=== PATIENT | male | born 1945 | race Caucasian/White ===

== ENCOUNTER 2018-08-14 08:34 | Day surgery (SDC) | payer MEDICARE, SELFPAY ==
--- NOTE | 2018-08-14 06:12 | PCM.HP.STD ---
Problem List (1) Screening for intestinal cancer Status: Acute History of Present Illness Date of Admission: 08/14/18 The patient is a 73 year old M presents for screening colonoscopy. He has had some abdominal pain and constipation. He states that he is never had a previous complete exam. An attempt was made in 2001. He was uncomfortable. Multiple attempts were made for him to present at a office appointment. Failed to show for 3 different appointments. His interest now is progressive constipation. Past Medical History Past Medical History (Chronic Problems): Chronic Problems (Last Updated 06/07/18 @ 14:55 by Teresa Jurado) Hypertension (Chronic) Chronic sinusitis (Chronic) Chronic constipation (Chronic) Nocturia associated with benign prostatic hyperplasia (Chronic) Medical History: Medical History (Last Updated 06/07/18 @ 14:55 by Teresa Jurado) Constipation K59.00 Depression F32.9 Arthritis M19.90 Back problem M53.9 HTN (hypertension) I10 Hearing problem H91.90 Seasonal allergies J30.2 Skin cancer C44.90 Vision problems H54.7 Allergies Latex, Natural Rubber Allergy (Intermediate, Verified 08/10/18 11:20) Unknown Home Medications: Ambulatory Orders Medication Instructions Recorded aspirin 81 mg tablet,delayed 81 mg PO DAILY 01/29/18 release clotrimazole-betamethasone 1 1 applic TOPICAL BID PRN PRN 01/29/18 %-0.05 % topical cream darifenacin ER 7.5 mg 7.5 mg PO QDAY 01/29/18 tablet,extended release 24 hr docusate sodium 100 mg capsule 100 mg PO DAILY PRN PRN 01/29/18 duloxetine 60 mg capsule,delayed 60 mg PO QDAY 01/29/18 release ketoconazole 1 % shampoo 1 applic TOPICAL 2XW 01/29/18 meloxicam 15 mg tablet 15 mg PO QDAY 01/29/18 tamsulosin 0.4 mg capsule 0.8 mg PO QHS 01/29/18 triamcinolone acetonide 0.1 % 1 applic TOPICAL DAILY PRN PRN 01/29/18 topical cream verapamil ER 360 mg 24 hr 360 mg PO QHS 01/29/18 capsule,extended release trazodone 50 mg tablet 50 mg PO QHS PRN #90 tab 02/28/18 Atorvastatin Calcium [Lipitor] 10 mg PO QHS 08/10/18 Dutasteride 0.5 mg PO DAILY 08/10/18 Fluocinolone Acetonide [Synalar] 1 applic TOPICAL BID PRN PRN 08/10/18 Fluticasone 0.05% [Flonase Nasal 2 spray INTRANASAL DAILY PRN PRN 08/10/18 [place]] Irbesartan [Avapro] 300 mg PO QHS 08/10/18 Linacolotide [Linzess] 145 mcg PO QHS 08/10/18 Triamterene 37.5MG/Hctz 25MG 1 tab PO QAM 08/10/18 [Maxzide 37.5 mg-25 mg Tablet] Surgical History: Surgical History (Last Updated 06/07/18 @ 14:55 by Teresa Jurado) S/P colonoscopy Z98.890 S/P hernia repair Z98.890, Z87.19 Status post surgical removal of pilonidal cyst Z98.890 Pilar cyst L72.11 Smoking Status: Former smoker Review of Systems Constitutional: Denies: Anorexia HEENT: Denies: Difficulty Swallowing Cardiovascular: Denies: Chest Pain Respiratory: Denies: Cough Gastrointestinal: Reports: Constipation Genitourinary: Denies: Dysuria Neurological: Denies: Balance problems Endocrine: Denies: Change in Body Habitus VTE Information - Inpt Only VTE Present on Admission: No - Physical Exam General: Alert, Oriented x3, Cooperative, No apparent distress HEENT: Atraumatic Oral: Moist Mucosa Lungs: Clear to auscultation Cardiovascular: Regular rate, Regular Rhythm Abdomen: Bowel Sounds Present, Soft, - - Overweight Extremities: No edema Lymphatic: No Cervical, Supraclavicular, or Inguinal Adenopathy Neurological: Cranial nerves II-XII grossly intact Psych/Mental Status: Normal Affect Assessment/Plan All Active Problems (Last Updated 06/07/18 @ 14:55 by Teresa Jurado) Screening for intestinal cancer (Acute) The patient presents for screening colonoscopy with possible biopsy or polypectomy is indicated. Careful inspection for potential source of constipation will be pursued. Random colonic biopsies were pursued if indicated. The patient is aware of technique, benefits, risks and alternatives. Because of his previous discomfort we will proceed with monitored anesthesia care. Primary care physician's Dr. Aníbal Morales M.D., F.A.C.S.
[2018-08-14 08:54] VITALS: BP 140/85; PULSE 98; RESP 16; TEMP 36.4; O2SAT 96; BMI 37.6
--- NOTE | 2018-08-14 09:30 | COLBX_PTH ---
PATIENT: SAM CALDWELL LOC: EN U#:[id number] AGE/SX: 73/M ROOM: RE08/14/[address]: Dr. Patrick Morales MD : 1945 BED: DIS: 08/14/2018 SPEC #: [id number] RECD: 08/14/18 11:58 STATUS: YAMIL GENESIS #: [id number] JACKI: 08/14/18 09:[address]: Patrick Morales DEPT: SURGICAL PATHOLOGY RECD BY: Ney Gimenez ENTERED: 08/14/18 13:35 SP TYPE: COLON BX OT DR: Dr. Carlos Avendaño MD Tissues: COLON BIOPSY Procedures: Surgery Specimen Level IV HEADER OPERATION: Colonoscopy PRE-OP DIAGNOSIS: Constipation TISSUE SUBMITTED: Random colonic biopsies MICROSCOPIC DIAGNOSIS Colon, random biopsy: No significant pathologic change. No evidence of colitis. See comment. AM:kota 08/15/18 COMMENT Focal mucosal hemorrhage is seen. Clinical correlation is suggested. MICROSCOPIC DESCRIPTION Slides are reviewed. GROSS DESCRIPTION Received in fixative is one container labeled with the patient's name and designated random colonic biopsy. The specimen consists of multiple irregular fragments of light parra soft tissue that in aggregate measure 2 x 0.3 x 0.1 cm. The specimen is totally submitted in one cassette. / SJ:rg 08/14/18 TC:5 CPT: 90453
[2018-08-14 10:20] VITALS: BP 119/72; BP 140/85; PULSE 92; RESP 14; TEMP 36.8; O2SAT 95
--- NOTE | 2018-08-14 10:20 | OP.ENDO_ITS ---
Patient Name: Miguel Angel Guillen Procedure Date: 08/14/2018 9:48 AM Date of : 1945 Age: 73 Procedure: Colonoscopy Indications: Screening for colorectal malignant neoplasm Providers: Patrick Morales MD Referring MD: Patrick Morales MD Medicines: See the Anesthesia note for documentation of the administered medications Patient Profile: Last Colonoscopy: more than 10 years ago. Complications: No immediate complications. Procedure: Pre-Anesthesia Assessment: - Prior to the procedure, a History and Physical was performed, and patient medications and allergies were reviewed. The patient's tolerance of previous anesthesia was also reviewed. The risks and benefits of the procedure and the sedation options and risks were discussed with the patient. All questions were answered, and informed consent was obtained. Prior Anticoagulants: The patient has taken no previous anticoagulant or antiplatelet agents. ASA Grade Assessment: II - A patient with mild systemic disease. After reviewing the risks and benefits, the patient was deemed in satisfactory condition to undergo the procedure. After I obtained informed consent, the scope was passed under direct vision. Throughout the procedure, the patient's blood pressure, pulse, and oxygen saturations were monitored continuously. The Colonoscope was introduced through the anus and advanced to the cecum, identified by appendiceal orifice and ileocecal valve. The colonoscopy was performed with moderate difficulty due to a redundant colon. Successful completion of the procedure was aided by changing the patient to a supine position. The patient tolerated the procedure well. The quality of the bowel preparation was good. The ileocecal valve was photographed. Scope In: 9:56:08 AM Scope Withdrawal Time 0 hours 6 minutes 53 seconds Scope Out: 10:14:03 AM Total Procedure Duration Time 0 hours 17 minutes 55 seconds Findings: The perianal and digital rectal examinations were normal. Multiple diverticula were found in the sigmoid colon and descending colon. Biopsies for histology were taken with a cold forceps from the entire colon for evaluation of microscopic colitis. The exam was otherwise without abnormality. Impression: - Diverticulosis in the sigmoid colon and in the descending colon. Biopsied. - The examination was otherwise normal. Recommendation: - Discharge patient to home. - Resume previous diet. - Continue present medications. - Repeat colonoscopy in 10 years for screening purposes. - Telephone my office for pathology results in 1 week. Procedure Code(s): --- Professional --- 66467, Colonoscopy, flexible; with biopsy, single or multiple Diagnosis Code(s): --- Professional --- Z12.11, Encounter for screening for malignant neoplasm of colon K57.30, Diverticulosis of large intestine without perforation or abscess without bleeding CPT copyright 2017 [employer]. All rights reserved. The codes documented in this report are preliminary and upon pricing actuary review may be revised to meet current compliance requirements. Patrick Morales MD 08/14/2018 10:20:28 AM This report has been signed electronically. Number of Addenda: 0 Note Initiated On: 08/14/2018 9:48 AM
[2018-08-14 10:25] VITALS: BP 111/64; BP 140/85; PULSE 89; RESP 16; O2SAT 94
[2018-08-14 10:30] VITALS: BP 127/74; BP 140/85; PULSE 88; RESP 16; O2SAT 94
[2018-08-14 10:35] VITALS: BP 129/80; BP 140/85; PULSE 87; RESP 16; TEMP 37.1; O2SAT 94
[2018-08-14 11:00] VITALS: BP 140/85
== END 2018-08-14 11:07 | disposition home or self-care (01) ==
LOC: EN 08:35 → AC 08:36
PROVIDERS: Family Provider Family Medicine; PCP Family Medicine; Visit Provider Surgery
PROC: 0DJD8ZZ Inspection of Lower Intestinal Tract, Via Natural or Artificial Opening Endoscopic (ICD-10-PCS; CPT 45378; principal; 2018-08-14 09:25)
DX: Z12.11 Encounter for screening for malignant neoplasm of colon (principal); K57.30 Diverticulosis of large intestine without perforation or abscess without bleeding; K59.09 Other constipation; I10 Essential (primary) hypertension; E78.00 Pure hypercholesterolemia, unspecified; N40.1 Benign prostatic hyperplasia with lower urinary tract symptoms; R35.1 Nocturia; F32.9 Major depressive disorder, single episode, unspecified; F41.9 Anxiety disorder, unspecified; J30.2 Other seasonal allergic rhinitis; Z85.828 Personal history of other malignant neoplasm of skin; Z87.891 Personal history of nicotine dependence; Z79.82 Long term (current) use of aspirin; Z79.899 Other long term (current) drug therapy
CPT/HCPCS: 45380; 88305; J7120

== ENCOUNTER → 2019-07-29 15:40 | Outpatient (CLI) | payer BC, SELFPAY ==
[2019-07-29 17:34] LABS: Absolute Lymphocyte Count 2.82 X10^3/uL (0.83-4.51); Absolute Neutrophil Count 6.9 X10^3/uL (2.0-7.7); Basophil# 0.04 X10^3/uL; Basophil% 0.3 % (0-1); Eosinophil# 0.41 X10^3/uL; Eosinophils% 3.6 % (0-5); Hematocrit 45.2 % (40-54); Hemoglobin 14.7 g/dL (13.0-16.5); Lymphocyte # 2.82 X10^3/ul (4.0); Lymphocyte % 24.5 % (19-41); Mean Corp Hgb Conc 32.5 g/dL (32-36); Mean Corpuscular Hgb 29.2 pg (27.0-32.0); Mean Corpuscular Volume 89.7 fL (80-94); Mean Platelet Vol. 10.4 fl (6.2-12.0); Monocyte# 1.24 X10^3/uL; Monocyte% 10.8 % (0-10); NRBC Flagged by Analyzer 0 % (0-5); Neutrophil # 6.93 X10^3/uL (2.7-7.7); Neutrophil % 60.1 % (47-70); Platelet Count 327 K/mm3 (150-450); RBC Distribution Width CV 13.1 % (11.6-14.6); RBC Distribution Width SD 42.8 fl (35.1-43.9); Red Blood Count 5.04 M/mm3 (4.6-6.2); White Blood Count 11.5 K/mm3 (4.4-11.0)
[2019-07-29 18:00] LABS: AST(SGOT) 17 U/L (15-37); Alanine Aminotransfer ALT/SGPT 27 U/L (16-61); Albumin, Serum 3.8 g/dL (3.2-5.0); Alkaline Phosphatase 65 U/L (45-117); Anion Gap 9 (5-15); BUN 22 mg/dL (7-18); BUN/Creat Ratio 22.1 RATIO (10-20); Bilirubin, Direct 0.17 mg/dL (0.00-0.30); Chloride 104 mmol/L (98-107); EST Glomerular Filtration Rate 78 mL/min (>60); Est Glom Filt Rate - Afr Amer 94 mL/min (>60); Globulin 3.7 g/dL (2.2-4.2); Glucose 87 mg/dL (74-106); Potassium 3.8 mmol/L (3.5-5.1); Protein, Total 7.5 g/dL (6.4-8.2); Sodium Level 140 mmol/L (136-145)
== END ==
PROVIDERS: Family Provider Family Medicine; PCP Family Medicine; Referring Provider Dermatology Pediatric Dermatology; Visit Provider Dermatology Pediatric Dermatology
DX: L40.0 Psoriasis vulgaris (principal); D69.2 Other nonthrombocytopenic purpura; Z79.899 Other long term (current) drug therapy
CPT/HCPCS: 36415; 80048; 80076; 85025; 86480

== ENCOUNTER → 2019-08-05 14:17 | Outpatient (CLI) | payer BC, SELFPAY ==
[2019-08-08 06:07] LABS: QNTFERON TB Mitogen Value > 10.00 IU/mL (.); QNTFERON TB Nil Value 0.02 IU/mL (.); QNTFERON TB1+ Ag Value 0.03 IU/mL (.); QNTFERON TB2+ Ag Value 0.02 IU/mL (.)
[2019-08-08 12:20] LABS: QNTIFERON TB Positive Criteria Negative (Negative)
== END ==
PROVIDERS: Family Provider Family Medicine; PCP Family Medicine; Referring Provider Dermatology Pediatric Dermatology; Visit Provider Dermatology Pediatric Dermatology
DX: L40.0 Psoriasis vulgaris (principal); D69.2 Other nonthrombocytopenic purpura; Z79.899 Other long term (current) drug therapy
CPT/HCPCS: 86480

== ENCOUNTER → 2020-10-13 10:57 | Outpatient (CLI) | payer MEDICARE, SELFPAY ==
[2020-10-16 03:07] LABS: QNTFERON TB Mitogen Value > 10.00 IU/mL (.); QNTFERON TB Nil Value 0.05 IU/mL (.); QNTFERON TB1+ Ag Value 0.08 IU/mL (.); QNTFERON TB2+ Ag Value 0.05 IU/mL (.)
[2020-10-16 06:05] LABS: QNTIFERON TB Positive Criteria Negative (Negative)
== END ==
PROVIDERS: PCP Family Medicine; Referring Provider Dermatology Pediatric Dermatology; Visit Provider Dermatology Pediatric Dermatology
DX: L64.8 Other androgenic alopecia (principal); L40.0 Psoriasis vulgaris; L40.8 Other psoriasis; L30.4 Erythema intertrigo; Z79.899 Other long term (current) drug therapy
CPT/HCPCS: 36415; 86480

== ENCOUNTER → 2022-03-07 | Outpatient (CLI) | payer MEDICARE, SELFPAY ==
[2022-03-07 15:31] LABS: Hematocrit 44.8 % (40-54); Hemoglobin 14.2 g/dL (13.0-16.5); Mean Corp Hgb Conc 31.7 g/dL (32-36); Mean Corpuscular Hgb 29.5 pg (27.0-32.0); Mean Corpuscular Volume 93.1 fL (80-94); Mean Platelet Vol. 10.5 fl (6.2-12.0); Platelet Count 318 K/mm3 (150-450); RBC Distribution Width CV 13.1 % (11.6-14.6); RBC Distribution Width SD 44.8 fl (35.1-43.9); Red Blood Count 4.81 M/mm3 (4.6-6.2); White Blood Count 8.4 K/mm3 (4.4-11.0)
[2022-03-07 16:02] LABS: ALB/GLOB Ratio 1.2 RATIO (0.9-2.4); AST(SGOT) 16 U/L (15-37); Alanine Aminotransfer ALT/SGPT 38 U/L (16-61); Albumin, Serum 3.7 g/dL (3.2-5.0); Alkaline Phosphatase 46 U/L (45-117); Anion Gap 5 (5-15); BUN 32 mg/dL (7-18); BUN/Creat Ratio 33.1 RATIO (10-20); Calcium,Total 8.5 mg/dL (8.5-10.1); Chloride 104 mmol/L (98-107); Creatinine, Serum 0.97 mg/dL (0.70-1.30); EST Glomerular Filtration Rate 80 mL/min (>60); Est Glom Filt Rate - Afr Amer 96 mL/min (>60); Globulin 3.2 g/dL (2.2-4.2); Glucose 84 mg/dL (74-106); Potassium 4.1 mmol/L (3.5-5.1); Protein, Total 6.9 g/dL (6.4-8.2); Sodium Level 140 mmol/L (136-145)
[2022-03-09 15:08] LABS: QNTFERON TB Mitogen Value > 10.00 IU/mL (.); QNTFERON TB Nil Value 0.03 IU/mL (.); QNTFERON TB1+ Ag Value 0.01 IU/mL (.); QNTFERON TB2+ Ag Value 0.01 IU/mL (.)
[2022-03-09 16:42] LABS: QNTIFERON TB Positive Criteria Negative (Negative)
== END | disposition home or self-care (01) ==
LOC: MTLAB 11:33
PROVIDERS: PCP Family Medicine; Referring Provider Dermatology Pediatric Dermatology; Visit Provider Dermatology Pediatric Dermatology
DX: L40.0 Psoriasis vulgaris (principal); D69.2 Other nonthrombocytopenic purpura; Z79.899 Other long term (current) drug therapy
CPT/HCPCS: 36415; 80053; 85027; 86480

== ENCOUNTER → 2024-04-04 | Outpatient (CLI) | payer MEDICARE, SELFPAY | END | disposition home or self-care (01) | LOC: MTLAB 15:34 | PROVIDERS: PCP Student in an Organized Health Care Education/Training Program; Referring Provider Physician Assistant; Visit Provider Physician Assistant | DX: L40.0 Psoriasis vulgaris (principal); L64.8 Other androgenic alopecia; D48.5 Neoplasm of uncertain behavior of skin; Z79.899 Other long term (current) drug therapy | CPT/HCPCS: 36415; 86480 ==

== ENCOUNTER → 2024-04-30 | Outpatient (CLI) | payer MEDICARE, SELFPAY ==
[2024-05-02 20:07] LABS: QNTFERON TB Mitogen Value > 10.00 IU/mL (.); QNTFERON TB Nil Value 0.01 IU/mL (.); QNTFERON TB1+ Ag Value 0.02 IU/mL (.); QNTFERON TB2+ Ag Value 0.02 IU/mL (.); QNTIFERON TB Positive Criteria Negative (Negative)
== END | disposition home or self-care (01) ==
LOC: MTLAB 13:06
PROVIDERS: PCP Student in an Organized Health Care Education/Training Program; Referring Provider Physician Assistant; Visit Provider Physician Assistant
DX: L40.0 Psoriasis vulgaris (principal); L64.8 Other androgenic alopecia; Z79.899 Other long term (current) drug therapy; D48.5 Neoplasm of uncertain behavior of skin
CPT/HCPCS: 86480

== ENCOUNTER → 2024-08-22 | Outpatient (CLI) | payer MEDICARE, SELFPAY ==
--- NOTE | 2024-08-22 | IMM_PTH ---
PATIENT: SAM CALDWELL LOC: [facility] U#:[id number] AGE/SX: 79/M ROOM: RE08/22/[address]: Dr. Patrick Phan MD : 1945 BED: DIS: 08/22/2024 SPEC #: [id number] RECD: 08/26/24 11:14 STATUS: YAMIL REQ #: [id number] JACKI: 08/22/24 00:[address]: Patrick Phan DEPT: IMMUNOHISTOCHEMISTRY RECD BY: Darius Calabrese ENTERED: 08/26/24 11:14 SP TYPE: IMMUNO OTHR DR: Dr. Dacia Parada MD Tissues: Skin of back, NOS Procedures: MART1 (add) S100 (initial) PHYSICIAN & INSTITUTION [place] [address] SPECIMEN INFORMATION: Tissue Source: Mid back lesion Clinical Info: Melanoma Specimen Number: [id number] CPT code: 65641,17411 METHODOLOGY: Deparaffinized sections of prefer/formalin-fixed tissue or PAP/DQ stained slides are incubated with monoclonal/polyclonal antibodies/oligonucleotide probes. Localization is made via biotin free immunoperoxidase method. Appropriate controls are performed and reacted as expected. Results on target cell population are indicated in the following table: RESULTS: ANTIBODY / CLONE RESULT S-100 (4C4.9) negative MART-1 (A-103) negative These tests were developed and their performance characteristics determined by [facility]. They may not have been cleared or approved by the [place]. Food and Drug Administration. The FDA has determined that such clearance or approval is not necessary. The above immunohistochemical/dualISH markers are ordered and reviewed by the Pathologist. INTERPRETATION: Skin lesion of mid back, punch biopsy: Negative for residual melanocytic lesion. 08/27/2024
--- NOTE | 2024-08-22 14:25 | LES_PTH ---
PATIENT: SAM CALDWELL LOC: [facility] U#:[id number] AGE/SX: 79/M ROOM: RE08/22/[address]: Dr. Patrick Phan MD : 1945 BED: DIS: 08/22/2024 SPEC #: [id number] RECD: 08/22/24 16:13 STATUS: YAMIL REJw #: [id number] JACKI: 08/22/24 14:[address]: Patrick Phan DEPT: SURGICAL PATHOLOGY RECD BY: Sharon Borjas ENTERED: 08/23/24 10:04 SP TYPE: Lesion OTHR DR: Dr. Dacia Parada MD Tissues: Skin of back, NOS Procedures: Special Stain Group I Surgery Specimen Level IV GMS Stain (control) HEADER OPERATION: Punch biopsy PRE-OP DIAGNOSIS: Melanoma TISSUE SUBMITTED: Mid back lesion MICROSCOPIC DIAGNOSIS Mid back lesion, punch biopsy: Extensive ulceration, acute inflammation and granulation tissue reaction. Negative for residual melanocytic lesion. See comment. 08/26/2024 COMMENT Immunohistochemistry ([id number]) supports the above diagnosis. Special stain for fungi is negative for organisms; matched control is appropriate. As per EMR, the patient has h/o superficial spreading melanoma. Clinical correlation and appropriate follow up are necessary. Case has been reviewed in consultation with Dr. Thomas who concurs with the above diagnosis. IDC:AM MICROSCOPIC DESCRIPTION Slides are reviewed. GROSS DESCRIPTION Received is one container labeled with the patient's name and not further designated. The specimen consists of a punch biopsy of parra-brown skin measuring 0.5cm in diameter and 0.6cm in length. Specimen is inked, bisected and submitted entirely in one cassette. 08/23/2024 TC:2 CPT:86594,63888
== END | disposition home or self-care (01) ==
LOC: LABSPEC 16:37
PROVIDERS: PCP Student in an Organized Health Care Education/Training Program; Referring Provider Surgery Plastic and Reconstructive Surgery; Visit Provider Surgery Plastic and Reconstructive Surgery
DX: C43.59 Malignant melanoma of other part of trunk (principal)
CPT/HCPCS: 88305; 88312; 88341; 88342

== ENCOUNTER 2024-09-04 05:47 | Day surgery (SDC) | payer MEDICARE, SELFPAY ==
[2024-09-04] VITALS (9 sets, daily range): BP systolic 104–167; BP diastolic 82–92; PULSE 70–79; RESP 18; TEMP 35.8–36.4; O2SAT 88–100; BMI 31.8
--- OUTSIDE RECORDS SUMMARY | 2024-09-04 05:50 | XMS RPT_ITS | CCD ---
Author Organization [facility] Care Team Providers Care Ground Operations Supervisor Name Role Phone Abi Hobbs DO Primary Care Provider ABI HOBBS DO Consulting Unavailable JAHAIRA ROSE DR Admitting Unavailable JAHAIRA ROSE DR Primary Care Unavailable JAHAIRA ROSE DR Attending Unavailable PROVIDER, UNKNOWN Consulting Unavailable PROVIDER, UNKNOWN Consulting Unavailable SESAR BREWER MD Admitting Unavailable ABI HOBBS DO Consulting Unavailable SESAR BREWER MD Primary Care Unavailable SESAR BREWER MD Attending Unavailable PROVIDER, UNKNOWN Consulting Unavailable PROVIDER, UNKNOWN Consulting Unavailable ABI HOBBS DO Consulting Unavailable ABI HOBBS DO Attending Unavailable ABI HOBBS DO Admitting Unavailable ABI HOBBS DO Primary Care Unavailable PROVIDER, UNKNOWN Consulting Unavailable PROVIDER, UNKNOWN Consulting Unavailable ABI HOBBS DO Consulting Unavailable SESAR BREWER MD Admitting Unavailable SESAR BREWER MD Primary Care Unavailable SESAR BREWER MD Attending Unavailable PROVIDER, UNKNOWN Consulting Unavailable PROVIDER, UNKNOWN Consulting Unavailable Allergies Allergy Classification Reported Allergen(s) Allergy Type Date of Onset Reaction(s) Facility (2 sources) Latex; Translations: [LATEX] Propensity to adverse reactions [address] [facility] Work Phone: (1 source) Spironolactone Drug Allergy [address] [facility] Medications Completed/Discontinued Medications Medication Drug Class(es) Dates Sig (Normalized) Sig (Original) aspirin 81 mg delayed release oral tablet (1 source) Platelet Aggregation Inhibitor, Nonsteroidal Anti-inflammatory Drug Start: 2 take 1 tablet by mouth once daily aspirin, enteric coated (ECOTRIN LOW STRENGTH) 81 mg ORAL EC tablet Indications: Essential hypertension, benign Take 1 tablet by mouth once daily. 90 tablet 3 02/06/2012 Active Comment on above: Take 1 tablet by amanda th once daily. atorvastatin 10 mg oral tablet (1 source) HMG-CoA Reductase Inhibitor Start: 7 take 1 tablet by mouth once daily at bedtime atorvastatin (LIPITOR) 10 mg tablet Indications: Other and unspecified hyperlipidemia Take 1 tablet by mouth daily at bedtime. 90 tablet 1 06/28/2017 Active Comment on above: Take 1 tablet by amanda th daily at bedtime. baclofen 10 mg oral tablet (1 source) gamma-Aminobutyric Acid-ergic Agonist Start: 1 take 1 tablet by mouth every eight hours as needed for pain baclofen (LIORESAL) 10 mg tablet TAKE 1 TABLET BY MOUTH EVERY 8 HOURS NEEDED FOR NECK PAIN. 0 07/13/2021 Active Comment on above: TAKE 1 TABLET BY AMANDA TH EVERY 8 HOURS NEEDED FOR NECK PAIN. betamethasone 0.5 mg/ml / clotrimazole 10 mg/ml topical cream (1 source) Azole Antifungal, Corticosteroid Start: 8 clotrimazole-betam ethasone (LOTRISONE) cream Apply 1 application to affected area twice daily. 45 g 2 04/03/2018 Active Comment on above: Apply 1 application to affected area twice daily. celecoxib 200 mg oral capsule (1 source) Nonsteroidal Anti-inflammatory Drug Start: 9 take 1 capsule by mouth twice daily celecoxib (CELEBREX) 200 mg capsule Indications: Bilateral primary osteoarthritis of knee , Chronic pain of both knees Take 1 capsule by mouth twice daily. 180 capsule 0 10/14/2019 Active Comment on above: Take 1 capsule by mo [facility] twice daily. Compression Knee Highs (1 source) Start: 8 Compression Knee Highs Indications: Bilateral lower extremity edema KNEE HIGH COMPRESSION STOCKINGS 20-30 MM. DX: EDEMA 1 Device 1 10/05/2018 Active Comment on above: KNEE HIGH COMPRESSIO N STOCKINGS 20-30 MM. DX: EDEMA docusate sodium 100 mg oral capsule (1 source) Start: 7 take 1 capsule by mouth every twelve hours as needed docusate sodium (COLACE) 100 mg capsule Take 1 capsule by mouth twice daily as needed for Constipation. 180 capsule 1 10/03/2017 Active Comment on above: Take 1 capsule by mo uth twice daily as needed for Constipation. DULoxetine 60 mg delayed release oral capsule (1 source) Serotonin and Norepinephrine Reuptake Inhibitor Start: 8 take 1 capsule by mouth once daily DULoxetine (CYMBALTA) 60 mg capsule Indications: Depression Take 1 capsule by mouth once daily. 90 capsule 1 04/17/2018 Active Comment on above: Take 1 capsule by mo [facility] once daily. etodolac 400 mg oral tablet (1 source) Nonsteroidal Anti-inflammatory Drug Start: 1 take 1 tablet by mouth twice daily at mealtime for arthritis etodolac (LODINE) 400 mg tablet TAKE 1 TABLET BY MOUTH TWICE DAILY WITH FOOD FOR ARTHRITIS 0 07/05/2021 Active Comment on above: TAKE 1 TABLET BY AMANDA TWICE DAILY WITH FOOD FOR ARTHRITIS fluocinonide 0.5 mg/ml topical cream (1 source) Corticosteroid Start: 8 fluocinonide (LIDEX) 0.05 % cream Apply 1 application to affected area twice daily. 120 g 2 10/05/2018 Active Comment on above: Apply 1 application to affected area twice daily. hydroCHLOROthiazide 25 mg / triamterene 37.5 mg oral capsule (1 source) Potassium-sparing Diuretic, Thiazide Diuretic Start: 8 take 1 capsule by mouth once daily triamterene-hydroc hlorothiazide 37.5-25 mg per capsule Take 1 capsule by mouth once daily. 90 capsule 3 04/17/2018 Active Comment on above: Take 1 capsule by mo [facility] once daily. hydrOXYzine hydrochloride 25 mg oral tablet (1 source) Antihistamine Start: 8 take 1 tablet by mouth three times daily as needed for anxiety hydrOXYzine HCl (ATARAX) 25 mg tablet Indications: JOLLY (generalized anxiety disorder) Take 1 tablet by mouth three times daily as needed for Anxiety. 30 tablet 2 10/05/2018 Active Comment on above: Take 1 tablet by amanda three times daily as needed for Anxiety. irbesartan 300 mg oral tablet (1 source) Angiotensin 2 Receptor Akosua Start: 8 take 1 tablet by mouth once daily at bedtime irbesartan (AVAPRO) 300 mg tablet Take 1 tablet by mouth daily at bedtime. 90 tablet 1 08/03/2018 Active Comment on above: Take 1 tablet by amanda daily at bedtime. ketoconazole 20 mg/ml medicated shampoo (1 source) Azole Antifungal Start: 7 ketoconazole (NIZORAL) 2 % shampoo Apply 1 application to affected area once daily as needed. (replace other RX sent for 120ml) 240 mL 2 06/27/2017 Active Comment on above: Apply 1 application to affected area once daily as needed. (replace other RX sent for 120ml) linaclotide 0.145 mg oral capsule (1 source) Guanylate Cyclase-C Agonist linaclotide (LINZESS) 145 mcg cap Take by mouth as needed. 0 Active Comment on above: Take by mouth as nee ded. losartan potassium 50 mg oral tablet (1 source) Angiotensin 2 Receptor Akosua Start: 1 take 1 tablet by mouth once daily losartan (COZAAR) 50 mg tablet Take 50 mg by mouth once daily. 0 05/15/2021 Active Comment on above: Take 50 mg by mouth once daily. montelukast 10 mg oral tablet (1 source) Leukotriene Receptor Antagonist Start: 1 take 1 tablet by mouth once daily montelukast (SINGULAIR) 10 mg tablet Take 10 mg by mouth once daily. 0 07/26/2021 Active Comment on above: Take 10 mg by mouth once daily. 24 hr oxybutynin chloride 10 mg extended release oral tablet (1 source) Cholinergic Muscarinic Antagonist Start: 8 take 1 tablet by mouth once daily oxybutynin ER (DITROPAN XL) 10 mg 24 hr tablet Take 1 tablet by mouth once daily. 30 tablet 5 10/05/2018 Active Comment on above: Take 1 tablet by amanda once daily. secukinumab (1 source) Interleukin-17A Antagonist secukinumab (COSENTYX SUBCUTANEOUS) Inject subcutaneously. 0 Active Comment on above: Inject subcutaneousl y. tamsulosin hydrochloride 0.4 mg oral capsule (1 source) alpha-Adrenergic Akosua Start: 9 take 2 capsules by mouth once daily at bedtime tamsulosin ER (FLOMAX) 0.4 mg cap Take 2 capsules by mouth daily at bedtime. 180 capsule 3 11/15/2018 Active Comment on above: Take 2 capsules by m outh daily at bedtime. traZODone hydrochloride 50 mg oral tablet (1 source) Serotonin Reuptake Inhibitor Start: 7 traZODone (DESYREL) 50 mg tablet Take one and one- half (1&1/2) tablets at bedtime. 135 tablet 1 06/28/2017 Active Comment on above: Take one and one- ruano lf (1&1/2) tablets at bedtime. trospium chloride 20 mg oral tablet (1 source) Cholinergic Muscarinic Antagonist Start: 1 take 1 tablet by mouth once daily at bedtime trospium (SANCTURA) 20 mg tablet Take 20 mg by mouth daily at bedtime. 0 06/01/2021 Active Comment on above: Take 20 mg by mouth daily at bedtime. 24 hr verapamil hydrochloride 360 mg extended release oral capsule (1 source) Calcium Channel Akosua Start: 8 take 1 capsule by mouth once daily at bedtime Verapamil HCl 360 mg 24 hr capsule Indications: Essential hypertension, benign Take 1 capsule by mouth daily at bedtime. 90 capsule 3 04/13/2018 Active Comment on above: Take 1 capsule by [facility] daily at bedtime. vortioxetine 10 mg oral tablet (1 source) Start: 1 TRINTELLIX 10 mg tablet TAKE 1 2 (ONE HALF) TABLET BY MOUTH ONCE DAILY FOR 5 DAYS THEN INCREASE TO 1 TABLET DAILY 0 07/19/2021 Active Comment on above: TAKE 1 2 (ONE HALF) TABLET BY MOUTH ONCE DAILY FOR 5 DAYS THEN INCREASE TO 1 TABLET DAILY Problems Active Problems Problem Classification Problem Date Documented Da te Episodic/Chronic Anxiety disorders (1 source) Generalized anxiety disorder; Translations: [Generalized anxiety disorder] Onset: 03-25-2009 10-20-2015 Chronic Diabetes mellitus without complication (1 source) Prediabetes; Translations: [Prediabetes] 10-03-2017 Episodic Disorders of lipid metabolism (2 sources) Mixed hyperlipidemia; Translations: [Mixed hyperlipidemia] Onset: 03-25-2009 09-22-2015 Chronic Essential hypertension (2 sources) Essential hypertension; Translations: [Essential (primary) hypertension] Onset: 01-25-2010 09-22-2015 Chronic Gastrointestinal hemorrhage (1 source) Rectal hemorrhage; Translations: [Hemorrhage of anus and rectum] 07-28-2009 Episodic Genitourinary symptoms and ill-defined conditions (2 sources) Nocturia; Translations: [Nocturia] Episodic Hemorrhoids (1 source) Hemorrhoids; Translations: [Unspecified hemorrhoids] 07-28-2009 Episodic Hyperplasia of prostate (2 sources) Nocturia due to benign prostatic hypertrophy; Translations: [Benign prostatic hyperplasia with lower urinary tract symptoms] Chronic Mood disorders (1 source) Recurrent major depressive episodes, mild ; Translations: [Major depressive disorder, recurrent, mild] Onset: 03-25-2009 10-05-2018 Chronic Osteoarthritis (1 source) Bilateral osteoarthritis of knees; Translations: [Bilateral primary osteoarthritis of knee] 03-24-2017 Chronic Other aftercare (1 source) 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; Translations: [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] Onset: 04-19-2024 Episodic Other endocrine disorders (1 source) Testicular hypofunction; Translations: [Testicular hypofunction] Onset: 11-17-2013 11-17-2013 Chronic Other inflammatory condition of skin (1 source) Seborrheic psoriasis; Translations: [Other psoriasis] Onset: 04-28-2014 04-28-2014 Chronic Other inflammatory condition of skin (1 source) Psoriasis; Translations: [Other psoriasis] Onset: 04-28-2014 04-28-2014 Chronic Other male genital disorders (1 source) Male erectile dysfunction, unspecified; Translations: [Impotence of organic origin] Onset: 11-17-2013 11-17-2013 Chronic Other nutritional; endocrine; and metabolic disorders (1 source) Morbid obesity; Translations: [Morbid (severe) obesity due to excess calories] 03-23-2017 Chronic Other screening for suspected conditions (not mental disorders or infectious disease) (3 sources) Patient encounter status; Translations: [Encounter for screening for malignant neoplasm of intestinal tract, unspecified] Onset: 04-24-2017 04-24-2017 Episodic Other upper respiratory disease (1 source) Allergic rhinitis; Translations: [Allergic rhinitis, unspecified] Onset: 01-25-2010 01-25-2010 Chronic Residual codes; unclassified (1 source) Personal history of other specified conditions; Translations: [Personal history of other specified conditions] Onset: 04-19-2024 Episodic Spondylosis; intervertebral disc disorders; other back problems (1 source) Degeneration of lumbosacral intervertebral disc; Translations: [Other intervertebral disc degeneration, lumbosacral region] Onset: 03-25-2009 03-25-2009 Chronic Past or Other Problems Problem Classification Problem Date Documented Date Episodic/Chronic Allergic reactions (2 sources) Contact dermatitis; Translations: [Unspecified contact dermatitis, unspecified cause] Onset: 03-25-2009 03-25-2009 Episodic Neoplasms of unspecified nature or uncertain behavior (1 source) Neoplasm of uncertain behavior of skin; Translations: [Neoplasm of uncertain behavior of skin] Onset: 06-30-2013 06-30-2013 Episodic Other injuries and conditions due to external causes (1 source) Excoriation of skin; Translations: [Other injury of unspecified body region, initial encounter] Onset: 09-15-2013 09-15-2013 Episodic Other non-epithelial cancer of skin (3 sources) Intraepidermal squamous carcinoma of trunk; Translations: [Carcinoma in situ of skin of trunk] Onset: 06-30-2013 06-30-2013 Episodic Other skin disorders (1 source) Actinic keratosis; Translations: [Actinic keratosis] Onset: 06-30-2013 10-25-2013 Episodic Other skin disorders (1 source) Seborrheic keratosis; Translations: [Other seborrheic keratosis] Onset: 06-30-2013 06-30-2013 Episodic Other skin disorders (1 source) Skin tag; Translations: [Other hypertrophic disorders of the skin] Onset: 06-30-2013 06-30-2013 Episodic Other skin disorders (1 source) Solar lentigo; Translations: [Other melanin hyperpigmentation] Onset: 06-30-2013 06-30-2013 Episodic Other skin disorders (1 source) Milia; Translations: [Epidermal cyst] Onset: 06-30-2013 06-30-2013 Episodic Other skin disorders (1 source) Vesicular eczema; Translations: [Dyshidrosis [pompholyx]] Onset: 06-30-2013 06-30-2013 Episodic Other skin disorders (1 source) Asteatosis cutis; Translations: [Xerosis cutis] Onset: 06-30-2013 06-30-2013 Episodic Other skin disorders (1 source) Inflamed seborrheic keratosis; Translations: [Inflamed seborrheic keratosis] Onset: 06-27-2014 06-27-2014 Episodic Viral infection (1 source) Verruca vulgaris; Translations: [Viral wart, unspecified] Onset: 06-27-2014 06-27-2014 Episodic Results Test Name Value Interpretation Reference Range Facil ity CBC + DIFFon 04-19-2024 Baso # 0.01 x10EE3/UL Normal 0.00 - 0.10 [facility] Comment on above: Performed By: #### 2 [id number] #### [facility],[address] [place] [address] 45404 Basophils/100 WBC (Bld) 0.1 % Normal 0.0 - 2.0 [facility] Comment on above: Performed By: #### 2 [id number] #### [facility],[address] [place] [address] 62864 CBC + DIFF Normal [facility] Comment on above: Result Comment: CBC- COMPLETE BLOOD COUNT Performed By: #### 2 [id number] #### [facility],[address] [place] [address] EO # 0.30 x10EE3/UL Normal 0.00 - 0.50 [facility] Comment on above: Performed By: #### 2 46339 #### [facility],[address] [place] [address] 45129 Eosinophils/100 WBC (Bld) 4.0 % Normal 0.0 - 7.0 [facility] Comment on above: Performed By: #### 2 64206 #### [facility],[address] [place], [place] [id number] Erythrocyte distribution width (RBC) [Ratio] 13.1 % Normal 12.0 - 15.6 [facility] Comment on above: Performed By: #### 2 14497 #### [facility],[address] [place] [address] Hematocrit (Bld) [Volume fraction] 42.4 % Normal 40.0 - 52.0 [facility] Comment on above: Performed By: #### 2 20309 #### [facility],[address] [place] [address] 55452 Hemoglobin (Bld) [Mass/Vol] 14.0 g/dL Normal 13.0 - 17.5 [facility] Comment on above: Performed By: #### 2 69658 #### [facility],[address] [place] [address] 48784 Lymph # 2.68 x10EE3/UL Normal 0.80 - 2.80 [facility] Comment on above: Performed By: #### 2 88988 #### [facility],[address] [place] [address] 06706 Lymphocytes/100 WBC (Bld) 36.5 % Normal 20.0 - 45.0 [facility] Comment on above: Performed By: #### 2 25260 #### [facility],[address] [place], [place] [id number] MANUAL DIFF N/A Normal [facility] Comment on above: Performed By: #### 2 48573 #### [facility],[address] [place], [place] [id number] MCH (RBC) [Entitic mass] 30 pg Normal 27 - 33 [facility] Comment on above: Performed By: #### 2 89174 #### [facility],[address] [place] [address] 83487 MCHC 33 X10 3 Normal 32 - 36 [facility] Comment on above: Performed By: #### 2 74145 #### [facility],[address] [place] [address] 36852 MCV (RBC) [Entitic vol] 90 fL Normal 81 - 98 [facility] Comment on above: Performed By: #### 2 30169 #### [facility],[address] [place] [address] 14580 Mineral # 0.81 x10EE3/UL Normal 0.20 - 1.00 [facility] Comment on above: Performed By: #### 2 28187 #### [facility],[address] [place] [address] 90318 MONOS % 11.1 % High 0.0 - 10.0 [facility] Comment on above: Performed By: #### 2 07902 #### [facility],[address] [place] [address] 72079 Morphology Timmy (Bld) [Interp] N/A Normal [facility] Comment on above: Performed By: #### 2 14517 #### [facility],[address] [place] [address] 25438 Neut # 3.54 x10EE3/UL Normal 1.50 - 7.10 [facility] Comment on above: Performed By: #### 2 82310 #### [facility],[address] [place] [address] 23220 Neutrophils/100 WBC (Bld) 48.3 % Normal 46.0 - 76.0 [facility] Comment on above: Performed By: #### 2 41525 #### [facility],[address] [place] [address] 54183 PLATELET 353 x10EE3/UL Normal 150 - 450 [facility] Comment on above: Performed By: #### 2 42954 #### [facility],[address] [place] [address] 60591 Platelet mean volume (Bld) [Entitic vol] 8.2 fL Normal 6.4 - 10.5 [facility] Comment on above: Result Comment: AUTO MATED DIFFERENTIAL Performed By: #### 2 58648 #### [facility],[address] [place] [address] 12523 RBC 4.72 x 10EE6/UL Normal 4.50 - 6.00 [facility] Comment on above: Performed By: #### 2 78359 #### [facility],[address] [place] [address] 47370 WBC 7.3 x 10EE3/UL Normal 4.5 - 10.8 [facility] Comment on above: Performed By: #### 2 67478 #### [facility],[address] [place] [address] 96306 CMP with eGFRon 04-19-2024 AGE 78 years Normal [facility] Comment on above: Performed By: #### 2 43885 #### [facility],[address] [place] [address] 38689 Albumin [Mass/Vol] 3.3 g/dL Low 3.4 - 5.0 [facility] Comment on above: Performed By: #### 2 63630 #### [facility],[address] [place] [address] 96161 Albumin/Globulin [Mass ratio] 0.9 {ratio} Normal 0.9 - 1.6 [facility] Comment on above: Performed By: #### 2 52954 #### [facility],[address] [place] [address] 72050 ALK PHOS 62 U/L Normal 46 - 116 [facility] Comment on above: Performed By: #### 2 50986 #### [facility],[address] [place] [address] 61904 ALT [Catalytic activity/Vol] 20 U/L Normal 16 - 63 [facility] Comment on above: Performed By: #### 2 31619 #### [facility],[address] [place] [address] 78164 Anion gap [Moles/Vol] 11 mmol/L Normal 10 - 20 [facility] Comment on above: Performed By: #### 2 99890 #### [facility],[address] [place] [address] 83311 AST [Catalytic activity/Vol] 15 U/L Normal 15 - 37 [facility] Comment on above: Performed By: #### 2 63933 #### [facility],[address] [place] [address] 72772 B/C RATIO 29 ratio Normal 0 - 30 [facility] Comment on above: Performed By: #### 2 04838 #### [facility],[address] [place] [address] 41734 Bilirubin [Mass/Vol] 0.7 mg/dL Normal 0.2 - 1.0 [facility] Comment on above: Performed By: #### 2 43475 #### [facility],[address] [place] [address] 91055 Calcium [Mass/Vol] 8.8 mg/dL Normal 8.5 - 10.1 [facility] Comment on above: Performed By: #### 2 41083 #### [facility],[address] [place] [address] 47930 Chloride [Moles/Vol] 101 mmol/L Normal 98 - 107 [facility] Comment on above: Performed By: #### 2 29443 #### [facility],[address] [place] [address] 93187 CMP with eGFR Normal [facility] Comment on above: Result Comment: COMP REHENSIVE METABOLIC PANEL Performed By: #### 2 81578 #### [facility],[address] [place] [address] 79821 CO2 [Moles/Vol] 31.1 mmol/L Normal 21.0 - 32.0 [facility] Comment on above: Performed By: #### 2 34274 #### [facility],[address] [place] [address] 83486 Creatinine [Mass/Vol] 0.93 mg/dL Normal 0.70 - 1.30 [facility] Comment on above: Performed By: #### 2 64462 #### [facility],[address] [place] [address] 89226 GFR/1.73 sq M.predicted among non-blacks MDRD (S/P/Bld) [Vol rate/Area] mL/min/{1.73_m2} Normal 60 - 999 [facility] Comment on above: Performed By: #### 2 23132 #### [facility],[address] [place], [place] [id number] Result Comment: ACCO RDING TO THE NATIONAL KIDNEY DISEASE EDUCATION PROGRAM(NKDE), A NORMAL eGFR IS A VALUE GREATER THAN OR EQUAL TO 60 ML/MIN/1.73 SQ METERS. CHRONIC KIDNEY DISEASE: <60mL/MIN/1.73 SQ METERS KIDNEY FAILURE: <15mL/MIN/1.73 SQ METERS THIS TEST SHOULD ONLY BE USED FOR PATIENTS 18 YEARS OF AGE AND OLDER. Globulin (S) [Mass/Vol] 3.6 g/dL Normal 1.5 - 3.8 [facility] Comment on above: Performed By: #### 2 85594 #### [facility],[address] [place] [address] 04442 Glucose [Mass/Vol] 109 mg/dL High 74 - 106 [facility] Comment on above: Performed By: #### 2 03437 #### [facility],[address] [place] [address] 28865 Potassium [Moles/Vol] 3.2 mmol/L Low 3.5 - 5.1 [facility] Comment on above: Performed By: #### 2 77926 #### [address] [address] Protein [Mass/Vol] 6.9 g/dL Normal 6.4 - 8.2 [facility] Comment on above: Performed By: #### 2 93018 #### [facility],[address] [place] [address] 62000 Sodium [Moles/Vol] 140 mmol/L Normal 136 - 145 [facility] Comment on above: Performed By: #### 2 91159 #### [facility],[address] [place] [address] 27936 Urea nitrogen [Mass/Vol] 27 mg/dL High 7 - 18 [facility] Comment on above: Performed By: #### 2 72515 #### [address] [address] HEMOGLOBIN A1C (POM)on 04-19 Glucose [Mass/Vol] 119.8 mg/dL High 0.0 - 0.0 [facility] Comment on above: Result Comment: BLDo HEMOGLOBIN A1C REFERENCE RANGESBLDo Suggested Diagnosis HbA1c(%) HbA1C (mmol/mol Diabetic >/=6.5 >/=48 Prediabetes 5.7 - 6.4 39 - 47 Normal <5.7 <39 Performed By: #### 2 56480 #### [facility],[address] [place] [address] 14415 HbA1c (Bld) [Mass fraction] 5.8 % Normal 0.0 - 6.5 [facility] Comment on above: Performed By: #### 2 57888 #### [facility],[address] [place] [address] 37143 LIPID PROFILEon 04-19-2024 Cholesterol [Mass/Vol] 134 mg/dL Normal 0 - 240 [facility] Comment on above: Performed By: #### 2 82029 #### [facility],[address] [place] [address] 12568 Cholesterol in HDL [Mass/Vol] 61 mg/dL High 40 - 60 [facility] Comment on above: Performed By: #### 2 99259 #### [facility],[address] [place] [address] 34231 Cholesterol in LDL [Mass/Vol] 52 mg/dL Normal 0 - 129 [facility] Comment on above: Performed By: #### 2 85841 #### [facility],[address] [place] [address] 65017 Cholesterol.total/C holesterol in HDL [Mass ratio] 2.2 {ratio} Normal 0.0 - 5.0 [facility] Comment on above: Performed By: #### 2 86073 #### [facility],[address] [place] [address] 39651 Lipid 1996 panel Normal [facility] Comment on above: Result Comment: LIPI D PROFILE Performed By: #### [id number] #### [facility],[address] [place] [address] Triglyceride [Mass/Vol] 105 mg/dL Normal 0 - 150 [facility] Comment on above: Performed By: #### [id number] #### [facility],[address] [place] [address] HbA1c (Bld)on 05-16-2023 Average glucose Estimated from glycated hemoglobin (Bld) [Mass/Vol] 117 mg/dL Normal [facility] Comment on above: Order Comment: Laith reed Type: BLOOD SPECIMEN Ordering Facility: [facility] Address: [address] [place] [address] Result Comment: eAG: (Estimated average glucose) is a calculated value from HgbA1c and is abrasives sales representative of the average blood glucose level in the last 2-3 month period. Performed By: #### 5 [id number] #### [facility] CLIA [id number] [address] [place] [address] [place] HbA1c (Bld) [Mass fraction] 5.7 % High 4.3-5.6 [facility] Comment on above: Order Comment: Laith reed Type: BLOOD SPECIMEN Ordering Facility: [facility] Address: [address] [place] [address] Result Comment: Amer [place] Diabetes Association guidelines indicate that patients with HgbA1c in the range 5.7-6.4% are at increased risk for development of diabetes, and intervention by lifestyle modification may be beneficial. HgbA1c greater or equal to 6.5% is considered diagnostic of diabetes. Performed By: #### 5 [id number] #### [facility] CLIA [id number] [address] [place] [address] [place] CNOVon 01-27-2022 CNOV Office Visit (UROLAG ) SAM GUILLEN ([id number]) 1945 M Date Time Provider Department 01/27/22 1:45 PM KEYLA FLORES During your visit today, we recorded the following information about you: Weight Height 107.5 kg 1.727 m Keyla Flores MD 01/27/2022 1:42 PM Signed ESTABLISHED PATIENT OFFICE VISIT HISTORY OF PRESENT ILLNESS Patient presents with: Prostate Problem: BPH Sam Guillen is a 76 year old male who presents for follow up regarding the below issues New problem- none, PSA back to wnl LAB RESULTS Creatinine Date Value Ref Range Status 07/29/2019 1.00 0.6 - 1.3 MG/DL Final PSA (ng/mL) Date Value 09/21/2016 2.18 PSA Screening (ng/mL) Date Value 03/23/2015 2.23 Color (no units) Date Value 09/21/2016 Yellow Clarity (no units) Date Value 09/21/2016 Clear Glucose, Urine (mg/dL) Date Value 09/21/2016 Negative Bilirubin, Urine (no units) Date Value 09/21/2016 Negative Ketones, Urine (no units) Date Value 09/21/2016 Negative Specific [place], Ur (no units) Date Value 09/21/2016 1.019 Hemoglobin/Blood,Ur ( ) Date Value 09/21/2016 Negative pH, Urine (no units) Date Value 09/21/2016 7.0 Protein, Urine (mg/dL) Date Value 09/21/2016 30 Urobilinogen (no units) Date Value 09/21/2016 Normal Nitrites (no units) Date Value 09/21/2016 Negative Leukest (no units) Date Value 09/21/2016 Negative ALLERGIES Allergen Reactions - Latex - Spironolactone Intolerance gynecomastia MEDICATIONS: losartan (COZAAR) 50 mg tablet Take 50 mg by mouth once daily. montelukast (SINGULAIR) 10 mg tablet Take 10 mg by mouth once daily. trospium (SANCTURA) 20 mg tablet Take 20 mg by mouth daily at bedtime. TRINTELLIX 10 mg tablet TAKE 1 2 (ONE HALF) TABLET BY MOUTH ONCE DAILY FOR 5 DAYS THEN INCREASE TO 1 TABLET DAILY secukinumab (COSENTYX SUBCUTANEOUS) Inject subcutaneously. tamsulosin ER (FLOMAX) 0.4 mg cap Take 2 capsules by mouth daily at bedtime. fluocinonide (LIDEX) 0.05 % cream Apply 1 application to affected area twice daily. hydrOXYzine HCl (ATARAX) 25 mg tablet Take 1 tablet by mouth three times daily as needed for Anxiety. Compression Knee Highs KNEE HIGH COMPRESSION STOCKINGS 20-30 MM. DX: EDEMA irbesartan (AVAPRO) 300 mg tablet Take 1 tablet by mouth daily at bedtime. triamterene-hydrochlo rothiazide 37.5-25 mg per capsule Take 1 capsule by mouth once daily. DULoxetine (CYMBALTA) 60 mg capsule Take 1 capsule by mouth once daily. Verapamil HCl 360 mg 24 hr capsule Take 1 capsule by mouth daily at bedtime. clotrimazole-betameth asone (LOTRISONE) cream Apply 1 application to affected area twice daily. traZODone (DESYREL) 50 mg tablet Take one and one- half (1AND1/2) tablets at bedtime. atorvastatin (LIPITOR) 10 mg tablet Take 1 tablet by mouth daily at bedtime. ketoconazole (NIZORAL) 2 % shampoo Apply 1 application to affected area once daily as needed. (replace other RX sent for 120ml) aspirin, enteric coated (ECOTRIN LOW STRENGTH) 81 mg ORAL EC tablet Take 1 tablet by mouth once daily. baclofen (LIORESAL) 10 mg tablet TAKE 1 TABLET BY MOUTH EVERY 8 HOURS NEEDED FOR NECK PAIN. etodolac (LODINE) 400 mg tablet TAKE 1 TABLET BY MOUTH TWICE DAILY WITH FOOD FOR ARTHRITIS celecoxib (CELEBREX) 200 mg capsule Take 1 capsule by mouth twice daily. oxybutynin ER (DITROPAN XL) 10 mg 24 hr tablet Take 1 tablet by mouth once daily. linaclotide (LINZESS) 145 mcg cap Take by mouth as needed. docusate sodium (COLACE) 100 mg capsule Take 1 capsule by mouth twice daily as needed for Constipation. REVIEW OF SYSTEMS GENERAL:no unintentional weight loss, malaise or fevers. NEUROLOGIC: pt is alert and oriented RESPIRATORY: Negative for cough, wheezing or shortness of breath. GASTROINTESTINAL: No nausea, vomiting, or diarrhea GENITOURINARY: Positive for BPH The remainder of the ROS was reviewed and is negative. HISTORIES PAST MEDICAL HISTORY Diagnosis Date - Allergic rhinitis - Anxiety state, unspecified 03/25/2009 - BPH (benign prostatic hyperplasia) - Chronic constipation - Contact dermatitis and other eczema, due to unspecified cause 03/25/2009 - Degeneration of lumbar or lumbosacral intervertebral disc 03/25/2009 - Depressive disorder, not elsewhere classified 03/25/2009 - Eczema - Elevated prostate specific antigen (PSA) - Erectile dysfunction - Essential hypertension, benign 03/25/2009 - Heat exhaustion, unspecified 1990 - Hemorrhoids - Morbid obesity (HCC) - Osteoarthritis of knees, bilateral - Other and unspecified hyperlipidemia 03/25/2009 - Peripheral artery disease (HCC) - Prediabetes - Rectal bleeding - Seborrheic dermatitis of scalp - Skin cancer Dr. Pruett FAMILY HISTORY Problem Relation Age of Onset - Hypertension Mother - COPD Mother age 64, collapsed lung - [place] (more content not included)... Normal [facility] CNOVon 07-29-2021 CNOV Office Visit (UROLAG ) PAULETTESAM ([id number]) 1945 M Date Time Provider Department 07/29/21 1:00 PM KEYLA FLORES UROAMANDO During your visit today, we recorded the following information about you: Weight Height 107.5 kg 1.727 m Keyla Flores MD 07/29/2021 1:39 PM Signed NEW PATIENT HISTORY AND PHYSICAL EXAM HISTORY OF PRESENT ILLNESS Patient presents with: Elevated PSA Sam Guillen is a 76 year old male who previously saw [facility] presents as a new patient for evaluation of LUTS, ED And rising PSA LAB RESULTS Creatinine Date Value Ref Range Status 07/29/2019 1.00 0.6 - 1.3 MG/DL Final 10/05/2018 0.84 0.73 - 1.22 mg/dL Final PSA (ng/mL) Date Value 09/21/2016 2.18 PSA Screening (ng/mL) Date Value 03/23/2015 2.23 Color (no units) Date Value 09/21/2016 Yellow Clarity (no units) Date Value 09/21/2016 Clear Glucose, Urine (mg/dL) Date Value 09/21/2016 Negative Bilirubin, Urine (no units) Date Value 09/21/2016 Negative Ketones, Urine (no units) Date Value 09/21/2016 Negative Specific [place], Ur (no units) Date Value 09/21/2016 1.019 Hemoglobin/Blood,Ur ( ) Date Value 09/21/2016 Negative pH, Urine (no units) Date Value 09/21/2016 7.0 Protein, Urine (mg/dL) Date Value 09/21/2016 30 Urobilinogen (no units) Date Value 09/21/2016 Normal Nitrites (no units) Date Value 09/21/2016 Negative Leukest (no units) Date Value 09/21/2016 Negative REVIEW OF SYSTEMS (10) ALLERGIC See allergies listed above GENERAL:no unintentional weight loss, healthy appearing male in no distress RESPIRATORY: Negative for cough, wheezing or shortness of breath. CARDIOVASCULAR: ++ B LE leg swelling/edema. GASTROINTESTINAL: no nausea/emesis GENITOURINARY: nocturia MUSCULOSKELETAL: Not complaining of muscle pain NEUROLOGIC:alert and oriented SKIN warm and dry PSYCHIATRIC: not complaining of depression/anxiety The remainder of the ROS was reviewed and is negative. MEDICATIONS: celecoxib (CELEBREX) 200 mg capsule Take 1 capsule by mouth twice daily. secukinumab (COSENTYX SUBCUTANEOUS) Inject subcutaneously. tamsulosin ER (FLOMAX) 0.4 mg cap Take 2 capsules by mouth daily at bedtime. oxybutynin ER (DITROPAN XL) 10 mg 24 hr tablet Take 1 tablet by mouth once daily. fluocinonide (LIDEX) 0.05 % cream Apply 1 application to affected area twice daily. hydrOXYzine HCl (ATARAX) 25 mg tablet Take 1 tablet by mouth three times daily as needed for Anxiety. Compression Knee Highs KNEE HIGH COMPRESSION STOCKINGS 20-30 MM. DX: EDEMA irbesartan (AVAPRO) 300 mg tablet Take 1 tablet by mouth daily at bedtime. triamterene-hydrochlo rothiazide 37.5-25 mg per capsule Take 1 capsule by mouth once daily. DULoxetine (CYMBALTA) 60 mg capsule Take 1 capsule by mouth once daily. Verapamil HCl 360 mg 24 hr capsule Take 1 capsule by mouth daily at bedtime. linaclotide (LINZESS) 145 mcg cap Take by mouth as needed. clotrimazole-betameth asone (LOTRISONE) cream Apply 1 application to affected area twice daily. dutasteride (AVODART) 0.5 mg capsule Take 0.5 mg by mouth once daily. docusate sodium (COLACE) 100 mg capsule Take 1 capsule by mouth twice daily as needed for Constipation. traZODone (DESYREL) 50 mg tablet Take one and one- half (1AND1/2) tablets at bedtime. atorvastatin (LIPITOR) 10 mg tablet Take 1 tablet by mouth daily at bedtime. ketoconazole (NIZORAL) 2 % shampoo Apply 1 application to affected area once daily as needed. (replace other RX sent for 120ml) aspirin, enteric coated (ECOTRIN LOW STRENGTH) 81 mg ORAL EC tablet Take 1 tablet by mouth once daily. ALLERGIES Allergen Reactions - Latex - Spironolactone Intolerance gynecomastia HISTORIES PAST MEDICAL HISTORY Diagnosis Date - Allergic rhinitis - Anxiety state, unspecified 03/25/2009 - BPH (benign prostatic hyperplasia) - Chronic constipation - Contact dermatitis and other eczema, due to unspecified cause 03/25/2009 - Degeneration of lumbar or lumbosacral intervertebral disc 03/25/2009 - Depressive disorder, not elsewhere classified 03/25/2009 - Eczema - Elevated prostate specific antigen (PSA) - Erectile dysfunction - Essential hypertension, benign 03/25/2009 - Heat exhaustion, unspecified 1989 - Hemorrhoids - Morbid obesity (HCC) - Osteoarthritis of knees, bilateral - Other and unspecified hyperlipidemia 03/25/2009 - Peripheral artery disease (HCC) - Prediabetes - Rectal bleeding - Seborrheic dermatitis of scalp - Skin cancer Dr. Pruett PAST SURGICAL HISTORY Procedure Laterality Date - COLONOSCOP W/ OR W/O [facility] SPEC 2001 Colonoscopy - PILONIDAL CYST/SINUS EXCISION 1973 - REPAIR ING HERNIA,5+Y/O,REDUCIBL 2001 Hernia repair, inguinal--left FAMILY HISTORY Problem Relation Age of Onset - Hypertension Mother - COPD Mother age 64, collapsed l (more content not included)... Normal [facility] Hemoglobin A1con 07-13-2019 HbA1c (Bld) [Mass fraction] 5.5 % Normal 4.3-5.[address] [facility] Comment on above: Performed By: #### H BA1C #### [facility] Routine Lab [address] [address] HbA1c (Bld) [Mass fraction] 111 mg/dL Normal [facility] Comment on above: Performed By: #### H BA1C #### [facility] Routine Lab [address] [address] Vital Signs Date Time Vital Sign Value Performing Clinician Madhu montoya 01-27-2022 13:30-0400 Body height 172.7 cm Keyla isidro MD Work Phone: [facility] 01-27-2022 13:30-040 Body weight 107.5 kg Keyla isidro MD Work Phone: [facility] Encounters Encounter Date Encounter Type Care Provider Facility Start: 05-16-2024 ambulatory [facility] Start: 04-24-2024 ambulatory SESAR IBARRA [facility] Start: 04-19-2024 End: 04-19-2024 ambulatory [facility] Start: 04-19-2024 End: 04-19-2024 Encounter for general adult medical examination without abnormal findings SESAR [facility]BARRA [facility] Start: 02-14-2024 ambulatory [facility] Start: 01-27-2022 End: 01-27-2022 Patient encounter procedure Keyla Flores MD Work Phone: Urology Comment on above: Benign prostatic hyp erplasia with nocturia (Primary Dx); Nocturia; Weak urinary stream Plan of Treatment Date Care Activity Detail Author Start: 10-05-2028 Urine microalbumin profile DTA P,TDAP,TD (2 - Td or Tdap) [facility] Start: 11-06-2021 ADVANCE DIRECTIVE DISCUSSION ADVANCE DIRECTIVE DISCUSSION [facility] Start: 10-05-2021 DIABETES SCREEN DIABETES SCREEN [facility] Start: 02-23-2021 COVID-19 VACCINE (3 - Pfizer risk 4-dose series) COVID-19 VACCINE (3 - Pfizer risk 4-dose series) [facility] Start: 10-05-2019 ANNUAL PCP TEAM MACHINERY ERECTOR DARIEN DISEASE VISIT ANNUAL PCP TEAM CHRONIC DISEASE VISIT [facility] Start: 05-19-2015 SHINGRIX VACCINE (2 of 3) LAUREN GRIX VACCINE (2 of 3) [facility] Start: 1961 BP CONTROLLED (<130/80) BP CONTROLLE D (<130/80) [facility] Start: 1961 HEPATITIS C SCREENING HEPATITIS C [facility] Immunizations Immunization Date Immunization Notes Care Provider Ana simmons 07-28-2017 influenza, high dose seasonal, preservative-free Keyla Flores MD Work Phone: [facility] 09-22-2015 pneumococcal conjuga te vaccine, 13 valent Keyla Flores MD Work Phone: [facility] 08-06-2015 influenza, high dose seasonal, preservative-free Keyla Flores MD Work Phone: [facility] Work Phone: 03-24-2015 zoster vaccine, live Keyla cleary MD Work Phone: [facility] Work Phone: 08-13-2014 influenza, seasonal, injectable Keyla Flores MD Work Phone: [facility] 07-29-2013 influenza virus vacc ine, unspecified formulation Keyla Florse MD Work Phone: [facility] 08-12-2011 influenza virus vacc ine, unspecified formulation Keyla Flores MD Work Phone: [facility] 09-16-2010 influenza virus vacc ine, unspecified formulation Keyla Flores MD Work Phone: [facility] 08-20-2009 influenza virus vacc ine, unspecified formulation Keyla Flores MD Work Phone: [facility] Work Phone: 06-25-2009 tetanus and diphther ia toxoids, adsorbed, preservative free, for adult use (2 Lf of tetanus toxoid and 2 Lf of diphtheria toxoid) Keyla Flores MD Work Phone: [facility] Work Phone: 08-06-2008 pneumococcal polysaccharide vaccine, 23 valent Keyla Flores MD Work Phone: [facility] Payers Date Payer Category Payer Medicare [id number] 2018 Unknown ANTHBEATRICE BLUE CROS S AND BLUE SHIELD JUAN PABLO FOFANA O [id number] 2018-Present [phone] [address] [place] [address] O [id number] 1945 Unknown [id number] 1945 Unknown [id number] 1945 Unknown [id number] 1945 Unknown [id number] Social History Date Type Detail Facility Tobacco smoking stat [facility] Ex-smoker [facility] End: 11-06-1969 History of tobacco use Current smoker [facility] End: 11-06-1969 History of tobacco use Cigarette Smoker [facility] Start: 01-27-2022 Alcohol intake Current non-dr stock controller of alcohol (finding) [facility] Start: 1945 Sex Assigned At Male [facility] Start: 12-12-2021 End: 01-11-2022 Exposure to SARS-CoV-2 (event) Not sure [facility] Progress note 01-27-2022 Note Date & Type Note Facility 01-27-2022 Note HNO ID: [id number] Author: Keyla Flores MD Service: ? Author Type: Physician Type: Progress Notes Filed: 01/27/2022 1:42 PM Note Text: ESTABLISHED PATIENT OFFICE VISIT HISTORY OF PRESENT ILLNESS Patient presents with: Prostate Problem: BPH Sam Guillen is a 76 year old male who presents for follow up regarding the below issues New problem- none, PSA back to wnl LAB RESULTS Creatinine Date Value Ref Range Status 07/29/2019 1.00 0.6 - 1.3 MG/DL Final PSA (ng/mL) Date Value 09/21/2016 2.18 PSA Screening (ng/mL) Date Value 03/23/2015 2.23 Color (no units) Date Value 09/21/2016 Yellow Clarity (no units) Date Value 09/21/2016 Clear Glucose, Urine (mg/dL) Date Value 09/21/2016 Negative Bilirubin, Urine (no units) Date Value 09/21/2016 Negative Ketones, Urine (no units) Date Value 09/21/2016 Negative Specific [place], Ur (no units) Date Value 09/21/2016 1.019 Hemoglobin/Blood,Ur ( ) Date Value 09/21/2016 Negative pH, Urine (no units) Date Value 09/21/2016 7.0 Protein, Urine (mg/dL) Date Value 09/21/2016 30 Urobilinogen (no units) Date Value 09/21/2016 Normal Nitrites (no units) Date Value 09/21/2016 Negative Leukest (no units) Date Value 09/21/2016 Negative ALLERGIES Allergen Reactions - Latex - Spironolactone Intolerance gynecomastia MEDICATIONS: losartan (COZAAR) 50 mg tablet Take 50 mg by mouth once daily. montelukast (SINGULAIR) 10 mg tablet Take 10 mg by mouth once daily. trospium (SANCTURA) 20 mg tablet Take 20 mg by mouth daily at bedtime. TRINTELLIX 10 mg tablet TAKE 1 2 (ONE HALF) TABLET BY MOUTH ONCE DAILY FOR 5 DAYS THEN INCREASE TO 1 TABLET DAILY secukinumab (COSENTYX SUBCUTANEOUS) Inject subcutaneously. tamsulosin ER (FLOMAX) 0.4 mg cap Take 2 capsules by mouth daily at bedtime. fluocinonide (LIDEX) 0.05 % cream Apply 1 application to affected area twice daily. hydrOXYzine HCl (ATARAX) 25 mg tablet Take 1 tablet by mouth three times daily as needed for Anxiety. Compression Knee Highs KNEE HIGH COMPRESSION STOCKINGS 20-30 MM. DX: EDEMA irbesartan (AVAPRO) 300 mg tablet Take 1 tablet by mouth daily at bedtime. triamterene-hydrochlorothiazide 37.5-25 mg per capsule Take 1 capsule by mouth once daily. DULoxetine (CYMBALTA) 60 mg capsule Take 1 capsule by mouth once daily. Verapamil HCl 360 mg 24 hr capsule Take 1 capsule by mouth daily at bedtime. clotrimazole-betamethasone (LOTRISONE) cream Apply 1 application to affected area twice daily. traZODone (DESYREL) 50 mg tablet Take one and one- half (1AND1/2) tablets at bedtime. atorvastatin (LIPITOR) 10 mg tablet Take 1 tablet by mouth daily at bedtime. ketoconazole (NIZORAL) 2 % shampoo Apply 1 application to affected area once daily as needed. (replace other RX sent for 120ml) aspirin, enteric coated (ECOTRIN LOW STRENGTH) 81 mg ORAL EC tablet Take 1 tablet by mouth once daily. baclofen (LIORESAL) 10 mg tablet TAKE 1 TABLET BY MOUTH EVERY 8 HOURS NEEDED FOR NECK PAIN. etodolac (LODINE) 400 mg tablet TAKE 1 TABLET BY MOUTH TWICE DAILY WITH FOOD FOR ARTHRITIS celecoxib (CELEBREX) 200 mg capsule Take 1 capsule by mouth twice daily. oxybutynin ER (DITROPAN XL) 10 mg 24 hr tablet Take 1 tablet by mouth once daily. linaclotide (LINZESS) 145 mcg cap Take by mouth as needed. docusate sodium (COLACE) 100 mg capsule Take 1 capsule by mouth twice daily as needed for Constipation. REVIEW OF SYSTEMS GENERAL:no unintentional weight loss, malaise or fevers. NEUROLOGIC: pt is alert and oriented RESPIRATORY: Negative for cough, wheezing or shortness of breath. GASTROINTESTINAL: No nausea, vomiting, or diarrhea GENITOURINARY: Positive for BPH The remainder of the ROS was reviewed and is negative. HISTORIES PAST MEDICAL HISTORY Diagnosis Date - Allergic rhinitis - Anxiety state, unspecified 03/25/2009 - BPH (benign prostatic hyperplasia) - Chronic constipation - Contact dermatitis and other eczema, due to unspecified cause 03/25/2009 - Degeneration of lumbar or lumbosacral intervertebral disc 03/25/2009 - Depressive disorder, not elsewhere classified 03/25/2009 - Eczema - Elevated prostate specific antigen (PSA) - Erectile dysfunction - Essential hypertension, benign 03/25/2009 - Heat exhaustion, unspecified 1990 - Hemorrhoids - Morbid obesity (HCC) - Osteoarthritis of knees, bilateral - Other and unspecified hyperlipidemia 03/25/2009 - Peripheral artery disease (HCC) - Prediabetes - Rectal bleeding - Seborrheic dermatitis of scalp - Skin cancer Dr. Pruett FAMILY HISTORY Problem Relation Age of Onset - Hypertension Mother - COPD Mother age 64, collapsed lung - Coronary Artery Disease Father age 70 - Heart Father cardiomegaly - Hypertension Father - Hypertension Sister - other (Multiple sclerosis) Sister - Hypertension Brother - Stroke Brother - Diabetes (more content not included)... [facility] History of Present illness Narrative 01-27-2022 Keyla Flores MD - 01/27/2022 1:31 PM EDT Note Date & Type Note Facility 01-27-2022 History of Presen t illness Narrative ESTABLISHED PATIENT OFFICE VISIT HISTORY OF PRESENT ILLNESS Patient presents with: Prostate Problem: BPH Sam Guillen is a 76 year old male who presents for follow up regarding the below issues New problem- none, PSA back to wnl LAB RESULTS Creatinine Date Value Ref Range Status 07/29/2019 1.00 0.6 - 1.3 MG/DL Final PSA (ng/mL) Date Value 09/21/2016 2.18 PSA Screening (ng/mL) Date Value 03/23/2015 2.23 Color (no units) Date Value 09/21/2016 Yellow Clarity (no units) Date Value 09/21/2016 Clear Glucose, Urine (mg/dL) Date Value 09/21/2016 Negative Bilirubin, Urine (no units) Date Value 09/21/2016 Negative Ketones, Urine (no units) Date Value 09/21/2016 Negative Specific [place], Ur (no units) Date Value 09/21/2016 1.019 Hemoglobin/Blood,Ur ( ) Date Value 09/21/2016 Negative pH, Urine (no units) Date Value 09/21/2016 7.0 Protein, Urine (mg/dL) Date Value 09/21/2016 30 Urobilinogen (no units) Date Value 09/21/2016 Normal Nitrites (no units) Date Value 09/21/2016 Negative Leukest (no units) Date Value 09/21/2016 Negative ALLERGIES Allergen Reactions Latex Spironolactone Intolerance gynecomastia MEDICATIONS: losartan (COZAAR) 50 mg tablet Take 50 mg by mouth once daily. montelukast (SINGULAIR) 10 mg tablet Take 10 mg by mouth once daily. trospium (SANCTURA) 20 mg tablet Take 20 mg by mouth daily at bedtime. TRINTELLIX 10 mg tablet TAKE 1 2 (ONE HALF) TABLET BY MOUTH ONCE DAILY FOR 5 DAYS THEN INCREASE TO 1 TABLET DAILY secukinumab (COSENTYX SUBCUTANEOUS) Inject subcutaneously. tamsulosin ER (FLOMAX) 0.4 mg cap Take 2 capsules by mouth daily at bedtime. fluocinonide (LIDEX) 0.05 % cream Apply 1 application to affected area twice daily. hydrOXYzine HCl (ATARAX) 25 mg tablet Take 1 tablet by mouth three times daily as needed for Anxiety. Compression Knee Highs KNEE HIGH COMPRESSION STOCKINGS 20-30 MM. DX: EDEMA irbesartan (AVAPRO) 300 mg tablet Take 1 tablet by mouth daily at bedtime. triamterene-hydrochlorothiazide 37.5-25 mg per capsule Take 1 capsule by mouth once daily. DULoxetine (CYMBALTA) 60 mg capsule Take 1 capsule by mouth once daily. Verapamil HCl 360 mg 24 hr capsule Take 1 capsule by mouth daily at bedtime. clotrimazole-betamethasone (LOTRISONE) cream Apply 1 application to affected area twice daily. traZODone (DESYREL) 50 mg tablet Take one and one- half (1&1/2) tablets at bedtime. atorvastatin (LIPITOR) 10 mg tablet Take 1 tablet by mouth daily at bedtime. ketoconazole (NIZORAL) 2 % shampoo Apply 1 application to affected area once daily as needed. (replace other RX sent for 120ml) aspirin, enteric coated (ECOTRIN LOW STRENGTH) 81 mg ORAL EC tablet Take 1 tablet by mouth once daily. baclofen (LIORESAL) 10 mg tablet TAKE 1 TABLET BY MOUTH EVERY 8 HOURS NEEDED FOR NECK PAIN. etodolac (LODINE) 400 mg tablet TAKE 1 TABLET BY MOUTH TWICE DAILY WITH FOOD FOR ARTHRITIS celecoxib (CELEBREX) 200 mg capsule Take 1 capsule by mouth twice daily. oxybutynin ER (DITROPAN XL) 10 mg 24 hr tablet Take 1 tablet by mouth once daily. linaclotide (LINZESS) 145 mcg cap Take by mouth as needed. docusate sodium (COLACE) 100 mg capsule Take 1 capsule by mouth twice daily as needed for Constipation. REVIEW OF SYSTEMS GENERAL:no unintentional weight loss, malaise or fevers. NEUROLOGIC: pt is alert and oriented RESPIRATORY: Negative for cough, wheezing or shortness of breath. GASTROINTESTINAL: No nausea, vomiting, or diarrhea GENITOURINARY: Positive for BPH The remainder of the ROS was reviewed and is negative. HISTORIES PAST MEDICAL HISTORY Diagnosis Date Allergic rhinitis Anxiety state, unspecified 03/25/2009 BPH (benign prostatic hyperplasia) Chronic constipation Contact dermatitis and other eczema, due to unspecified cause 03/25/2009 Degeneration of lumbar or lumbosacral intervertebral disc 03/25/2009 Depressive disorder, not elsewhere classified 03/25/2009 Eczema Elevated prostate specific antigen (PSA) Erectile dysfunction Essential hypertension, benign 03/25/2009 Heat exhaustion, unspecified 1989 Hemorrhoids Morbid obesity (HCC) Osteoarthritis of knees, bilateral Other and unspecified hyperlipidemia 03/25/2009 Peripheral artery disease (HCC) Prediabetes Rectal bleeding Seborrheic dermatitis of scalp Skin cancer Dr. Pruett FAMILY HISTORY Problem Relation Age of Onset Hypertension Mother COPD Mother age 64, collapsed lung Coronary Artery Disease Father age 70 Heart Father cardiomegaly Hypertension Father Hypertension Sister other (Multiple sclerosis) Sister Hypertension Brother Stroke Brother Diabetes Daughter PAST SURGICAL HISTORY Procedure Laterality Date COLONOSCOPY FLX DX W/COLLJ SPEC WHEN PFRMD 2001 Colonoscopy EXCISION PILONIDAL CYST/SINUS SIMPLE 1973 RPR 1ST INGUN HRNA AGE 5 YRS/> REDUCIBLE 2001 Hernia repair, inguinal--left SOCIAL HISTORY Social History Tobacco Use Smoking status: Former Smoker Packs/day: 1.00 Years: 25.00 Pack years: 25.00 Types: Cigarettes Quit date: 11/06/1969 Years since quittin.2 Smokeless tobacco: Never Used Substance Use Topics Alcohol use: No Drug use: No PHYSICAL EXAMINATION General appearance: Well appearing, alert, in no acute distress, well-hydrated, well nourished Psych Alert and oriented to person, place and time Respiratory: no wheezing or rhonchi Genitourinary: MALE EXAM: Exam NOT Indicated 01/11/2022 PSA 3.7 06/02/2021 PSA 4.0 09/21/2016 PSA 2.2 Assessment and Plan: Elevated PSA- no Fhx of Director Of Medicare, repeat 3.7 so follow conservatively LUTS- nocturia 2-3x, freq Q 1h, ++ urgency and urge inc, pt currently on Flomax QD and Ditropan XL10mg (no help with Avodart) - not interested in surgery so added Proscar and increased to BID Flomax and not as much leakage so hes content, not interested in surgery documented in this encounter [facility] Progress note 07-29-2021 Note Date & Type Note Facility 07-29-2021 Note HNO ID: [id number] Author: Keyla Flores MD Service: ? Author Type: Physician Type: Progress Notes Filed: 07/29/2021 1:39 PM Note Text: NEW PATIENT HISTORY AND PHYSICAL EXAM HISTORY OF PRESENT ILLNESS Patient presents with: Elevated PSA Sam Guillen is a 76 year old male who previously saw [facility] presents as a new patient for evaluation of LUTS, ED And rising PSA LAB RESULTS Creatinine Date Value Ref Range Status 07/29/2019 1.00 0.6 - 1.3 MG/DL Final 10/05/2018 0.84 0.73 - 1.22 mg/dL Final PSA (ng/mL) Date Value 09/21/2016 2.18 PSA Screening (ng/mL) Date Value 03/23/2015 2.23 Color (no units) Date Value 09/21/2016 Yellow Clarity (no units) Date Value 09/21/2016 Clear Glucose, Urine (mg/dL) Date Value 09/21/2016 Negative Bilirubin, Urine (no units) Date Value 09/21/2016 Negative Ketones, Urine (no units) Date Value 09/21/2016 Negative Specific [place], Ur (no units) Date Value 09/21/2016 1.019 Hemoglobin/Blood,Ur ( ) Date Value 09/21/2016 Negative pH, Urine (no units) Date Value 09/21/2016 7.0 Protein, Urine (mg/dL) Date Value 09/21/2016 30 Urobilinogen (no units) Date Value 09/21/2016 Normal Nitrites (no units) Date Value 09/21/2016 Negative Leukest (no units) Date Value 09/21/2016 Negative REVIEW OF SYSTEMS (10) ALLERGIC See allergies listed above GENERAL:no unintentional weight loss, healthy appearing male in no distress RESPIRATORY: Negative for cough, wheezing or shortness of breath. CARDIOVASCULAR: ++ B LE leg swelling/edema. GASTROINTESTINAL: no nausea/emesis GENITOURINARY: nocturia MUSCULOSKELETAL: Not complaining of muscle pain NEUROLOGIC:alert and oriented SKIN warm and dry PSYCHIATRIC: not complaining of depression/anxiety The remainder of the ROS was reviewed and is negative. MEDICATIONS: celecoxib (CELEBREX) 200 mg capsule Take 1 capsule by mouth twice daily. secukinumab (COSENTYX SUBCUTANEOUS) Inject subcutaneously. tamsulosin ER (FLOMAX) 0.4 mg cap Take 2 capsules by mouth daily at bedtime. oxybutynin ER (DITROPAN XL) 10 mg 24 hr tablet Take 1 tablet by mouth once daily. fluocinonide (LIDEX) 0.05 % cream Apply 1 application to affected area twice daily. hydrOXYzine HCl (ATARAX) 25 mg tablet Take 1 tablet by mouth three times daily as needed for Anxiety. Compression Knee Highs KNEE HIGH COMPRESSION STOCKINGS 20-30 MM. DX: EDEMA irbesartan (AVAPRO) 300 mg tablet Take 1 tablet by mouth daily at bedtime. triamterene-hydrochlorothiazide 37.5-25 mg per capsule Take 1 capsule by mouth once daily. DULoxetine (CYMBALTA) 60 mg capsule Take 1 capsule by mouth once daily. Verapamil HCl 360 mg 24 hr capsule Take 1 capsule by mouth daily at bedtime. linaclotide (LINZESS) 145 mcg cap Take by mouth as needed. clotrimazole-betamethasone (LOTRISONE) cream Apply 1 application to affected area twice daily. dutasteride (AVODART) 0.5 mg capsule Take 0.5 mg by mouth once daily. docusate sodium (COLACE) 100 mg capsule Take 1 capsule by mouth twice daily as needed for Constipation. traZODone (DESYREL) 50 mg tablet Take one and one- half (1AND1/2) tablets at bedtime. atorvastatin (LIPITOR) 10 mg tablet Take 1 tablet by mouth daily at bedtime. ketoconazole (NIZORAL) 2 % shampoo Apply 1 application to affected area once daily as needed. (replace other RX sent for 120ml) aspirin, enteric coated (ECOTRIN LOW STRENGTH) 81 mg ORAL EC tablet Take 1 tablet by mouth once daily. ALLERGIES Allergen Reactions - Latex - Spironolactone Intolerance gynecomastia HISTORIES PAST MEDICAL HISTORY Diagnosis Date - Allergic rhinitis - Anxiety state, unspecified 03/25/2009 - BPH (benign prostatic hyperplasia) - Chronic constipation - Contact dermatitis and other eczema, due to unspecified cause 03/25/2009 - Degeneration of lumbar or lumbosacral intervertebral disc 03/25/2009 - Depressive disorder, not elsewhere classified 03/25/2009 - Eczema - Elevated prostate specific antigen (PSA) - Erectile dysfunction - Essential hypertension, benign 03/25/2009 - Heat exhaustion, unspecified 1989 - Hemorrhoids - Morbid obesity (HCC) - Osteoarthritis of knees, bilateral - Other and unspecified hyperlipidemia 03/25/2009 - Peripheral artery disease (HCC) - Prediabetes - Rectal bleeding - Seborrheic dermatitis of scalp - Skin cancer Dr. Pruett PAST SURGICAL HISTORY Procedure Laterality Date - COLONOSCOP W/ OR W/O BRSH SPEC 2001 Colonoscopy - PILONIDAL CYST/SINUS EXCISION 1973 - REPAIR ING HERNIA,5+Y/O,REDUCIBL 2001 Hernia repair, inguinal--left FAMILY HISTORY Problem Relation Age of Onset - Hypertension Mother - COPD Mother age 64, collapsed lung - Coronary Artery Disease Father age 70 - Heart Father cardiomegaly - Hypertension Father - Hypertension Sister - other (Multiple sclerosis) Sister - Hypertension Brother - Stroke Broth (more content not included)... [facility] History of Past illness Narrative 09-15-2013 Note Date & Type Note Facility 09-15-2013 History of Past i llness Narrative Problem Noted Date Resolved Date Pruritus 09/15/2013 10/05/2018 Actinic skin damage 06/30/2013 03/23/2017 Obesity 10/03/2017 documented as of this encounter (statuses as of 01/27/2022) [facility] Evaluation note Note Date & Type Note Facility Evaluation note Diagnosis Benign prostatic hyperplasia with nocturia- Primary Nocturia Weak urinary stream Slowing of urinary stream documented in this encounter [facility] Summary Purpose Family History No Family History Records FoundNo Family History Records FoundNo Family History Records FoundNo Family History Records Found Advance Directives No Advanced Directives Records FoundNo Advanced Directives Records FoundNo Advanced Directives Records FoundNo Advanced Directives Records Found Additional Source Comments (unrecognized sect ion and content) No Status Records FoundNo Status Records FoundNo Status Records FoundNo Status Records Found INFORMATION SOURCE (unrecogn ized section and content) DATE CREATED AUTHOR 07/13/[address] [facility] DATE CREATED AUTHOR AUTHOR'S ORGANIZ ATION 01/29/2022 [facility] DATE CREATED AUTHOR AUTHOR'S ORGANIZ ATION 05/18/2023 [facility] DATE CREATED AUTHOR AUTHOR'S ORGANIZ ATION 05/22/2024 [facility] Source Comments (unrecognize d section and content) In the event this informatio n is protected by the Federal Confidentiality of Alcohol and Drug Abuse Patient Records regulations: The Federal rules restrict any use of the information to criminally investigate or prosecute any alcohol or drug abuse patient.[facility] Reason for Visit (unrecogniz ed section and content) Reason Comments Prostate Problem BPH Care Teams (unrecognized sec tion and content) Ground Operations Supervisor Relationship Specialty Start Date End Date Abi Hobbs DO [address] [place] [address] PCP - General Family Practice 06/29/21 FOR RECORDS PERTAINING TO PATIENTS WHO ARE OR HAVE BEEN ENROLLED IN A CHEMICAL DEPENDENCY/SUBSTANCEABUSE PROGRAM, SOME INFORMATION MAY BE OMITTED. This clinical summary was aggregated from multiple sources. Caution should be exercised in using it in the provision of clinical care. This summary normalizes information from multiple sources, and as a consequence, information in this document may materially change the coding, format and clinical context of patient data. In addition, data may be omitted in some cases. CLINICAL DECISIONS SHOULD BE BASED ON THE PRIMARY CLINICAL RECORDS. [facility]. provides no warranty or guarantee of the accuracy or completeness of information in this document.
--- NOTE | 2024-09-04 06:54 | PCM.HP.STD ---
HPI - General HPI Narrative SAM CALDWELL, is a 79 M who presents with a left back melanoma and a right hand squamous cell carcinoma. Current Encounter (DATE OF SURGERY H&P UPDATE): I saw and examined the patient this morning in pre-operative holding. We discussed risks and benefits of today's surgery and they would like to proceed (see discussion in the assessment and plan section). NO CHANGE in health history since last seen and evaluated. Ready to proceed with surgery. [facility] Medical History (Updated 08/26/24 @ 13:01 by Esmer Pagan) Wears glasses Prostate disease High cholesterol Back pain Former smoker History of edema History of echocardiogram Melanoma Depression Constipation Skin cancer HTN (hypertension) Arthritis Home Medications ?Medication ?Instructions ?Recorded ?Last Taken ?Type aspirin 81 mg tablet,delayed 81 mg PO DAILY 01/29/18 08/26/24 History release (Adult Low Dose Aspirin) clotrimazole-betamethasone 1 1 applic topical BID PRN PRN 01/29/18 Unknown History %-0.05 % topical cream (Lotrisone) Rash/Topical Irritation docusate sodium 100 mg capsule 100 mg PO DAILY PRN PRN 01/29/18 Unknown History Constipation duloxetine 60 mg capsule,delayed 60 mg PO QDAY depression 01/29/18 Unknown History release ketoconazole 1 % shampoo 1 applic topical 2XW 01/29/18 Unknown History tamsulosin 0.4 mg capsule 0.8 mg PO QHS urine flow 01/29/18 Unknown History triamcinolone acetonide 0.1 % 1 applic topical DAILY PRN PRN 01/29/18 Unknown History topical cream Rash/Topical Irritation verapamil 360 mg 24 hr 360 mg PO QHS HTN 01/29/18 09/03/24 History capsule,extended release trazodone 50 mg tablet 50 mg PO QHS PRN insomnia #90 tabs 02/28/18 Unknown Rx atorvastatin 10 mg tablet 10 mg PO QHS cholesterol 08/10/18 Unknown History dutasteride 0.5 mg capsule 0.5 mg PO QHS prostate 08/10/18 Unknown History fluocinolone 0.025 % topical cream 1 applic topical BID PRN PRN 08/10/18 Unknown History (Synalar) Rash/Topical Irritation fluticasone propionate 50 2 spray intranasal DAILY PRN PRN 08/10/18 Unknown History mcg/actuation nasal Allergies spray,suspension furosemide 20 mg tablet 20 mg PO QDAY 08/13/24 Unknown History guselkumab 100 mg/mL subcutaneous 100 mg subcut .EVERY 8 WEEKS 08/13/24 Unknown History auto-injector (Tremfya) losartan 50 mg tablet 50 mg PO QDAY 08/13/24 09/03/24 History Allergy/AdvReac Type Severity Reaction Status Date / Time Latex, Natural Rubber Allergy Intermediate Unknown Verified 09/04/24 06:09 Family History Mother Hypertension Father Hypertension Other Alcoholism Anxiety Arthritis Depression Myocardial infarction Surgical History (Updated 08/26/24 @ 13:01 by Esmer Pagan) Hx of right cataract extraction Hx of left cataract extraction Hx of total knee arthroplasty Hx of total knee arthroplasty S/P colonoscopy Status post surgical removal of pilonidal cyst S/P hernia repair Social History Smoking Status: Former smoker alcohol intake: never substance use type: does not use what type of physical activity do you participate in: none Vital Signs Vital Signs Vital Signs: 09/04/24 06:10 09/04/24 06:10 Temperature 97.2 F L Temperature Source Temporal Pulse Rate 78 Respiratory Rate 18 Respiratory Pattern Normal Blood Pressure 157/82 H Blood Pressure Mean 107 Blood Pressure Source Monitor Blood Pressure Position Sitting Blood Pressure Location Left Arm Pulse Ox 100 Oxygen Delivery Method Room Air Weight Weight: 209 lb 7.026 oz Body Mass Index (BMI) 31.8 Physical Exam Narrative RIGHT DORSAL Hand RIGHT dorsal hand lesion, scaly, over the long finger EDC. Lesion is approximately 1 x 1 cm Patient is able to hyperextend all digits from neutral position Sensation to light touch is intact on the radial ulnar borders of all digits Fingers are warm well-perfused Left mid back lesion with ulceration from biopsy. No surrounding induration On my exam today there is no axillary or inguinal lymphadenopathy Assessment & Plan Assessment/Plan (1) Squamous cell carcinoma in situ: PLAN: I examined the pathology report and it demonstrated at least invasive squamous cell carcinoma, meaning that they could not rule out right dorsal hand invasive squamous cell carcinoma. Plan for 0.5 cm margins on the back of the hand and possible temporary dressing versus possible primary closure. Patient happy with this plan. (2) Melanoma: PLAN: Discussed with patient extensively results of the biopsies. The shave biopsy demonstrated 0.4 mm depth and my full-thickness punch biopsy did not demonstrate any residual melanoma. I talked to him about the risk benefit of a sentinel node. The decision DX calculator was submitted by the dermatology department and demonstrated a 2% risk of sentinel node positivity (less than 5% there is no recommendation for sentinel lymph node biopsy for testing). I talked the patient about going based off of 0.4 mm depth shave biopsy for margins which will be 1 cm. He is in agreement with this plan. He understands the risks of not being able to close the wound primarily and therefore putting a temporary dressing on while we wait for final margins. PLAN: Plan I talked the patient extensively about the risks of surgery, including bleeding, infection, damage to surrounding structures, surgical site dehiscence and wound formation, need for wound care, need for repeat operations, failure to obtain the desired result, DVT/PE, and the risks of anesthesia including . The benefits and alternatives of this surgery were also discussed. All of their questions were answered, and they agreed to proceed with surgery. INTERVAL H&P PLAN, DATE OF SURGERY: We will proceed with surgery today.
--- NOTE | 2024-09-04 06:59 | PRE.ANES_ITS ---
ASA Classification* ASA Classification ASA Classification: 2 (SEE WRITTEN PRE ANESTHESIA RECORD FOR FULL ASSESSMENT) Assessment & Plan Anesthesia* Anesthesia Assessment Anesthesia Assessment: Discussed sedation and/or anesthesia options, risks, benefits, and alternatives with patient/parents/legal guardian/POA. Questions invited. The patient/parents/legal guardian/POA seems to understand and agrees to proceed with anesthesia plan. Reviewed the physical assessment, medical history, allergy history and patient home medications list prior to surgery/procedure/anesthetic and documented any changes. Performed airway and anesthesia risk assessments. Anesthesia Type Anesthesia Type: General (SEE WRITTEN PRE ANESTHESIA RECORD FOR FULL ASSESSMENT) and MAC (SEE WRITTEN PRE ANESTHESIA RECORD FOR FULL ASSESSMENT) Anesthesia Focused Assessment* Temperature: 97.2 F Pulse Rate: 78 Blood Pressure: 157/82 Respiratory Rate: 18 Pulse Ox: 100 Airway Assessment Mouth opens: >3 cm Mallampati Score: II Focused Labs Anesthesia Preop lab: CBC WBC 8.4 K/mm3 (4.4-11.0) 03/07/22 11:37 RBC 4.81 M/mm3 (4.6-6.2) 03/07/22 11:37 Hgb 14.2 g/dL (13.0-16.5) 03/07/22 11:37 Hct 44.8 % (40-54) 03/07/22 11:37 Plt Count 318 K/mm3 (150-450) 03/07/22 11:37 CHEMISTRY Potassium 4.1 mmol/L (3.5-5.1) 03/07/22 11:37 Sodium 140 mmol/L (136-145) 03/07/22 11:37 BUN 32 mg/dL (7-18) H 03/07/22 11:37 Creatinine 0.97 mg/dL (0.70-1.30) 03/07/22 11:37 Glucose 84 mg/dL (74-106) 03/07/22 11:37 TSH 1.01 uIU/mL (0.358-3.74) 06/10/14 10:21 COAG Pre-Assessment Diagnosis/Proposed Procedure Planned Operative Procedure(s): RIGHT HAND SQUAMOUS CELL CARCINOMA EXCISION POSS CLOSURE,POSS DERMAL SUBSTITUTE Anesthesia History Anesthesia History - customer account administrator: Anesthesia History - customer account administrator Hx Hospitalization No 08/26/24 12:52 Any Problems With Anesthesia No 08/26/24 12:52 Cholinesterase deficiency No 08/26/24 12:52 You/Your Family Experience No 08/26/24 12:52 fever (hyperthermia) with Relationship Recent Exposure to Contagious No 09/04/24 06:10 Disease Does patient have nerve No 08/26/24 12:52 stimulator Patient instructed to have device shut off --Does patient have Pacemaker No 09/04/24 06:10 or ICD? When Was Last Pacemaker Check QUESTION #4 FULL TEXT: You/Your Family Experience fever (hyperthermia) with Anesthesia Last Oral Intake Last Oral intake: Last Oral Intake NPO since 00:00 09/04/24 06:10 Meds taken in AM with sips of No 09/04/24 06:10 water? Meds patient instructed to take am of surgery PONV PONV - customer account administrator: PONV - customer account administrator Female No 08/26/24 12:52 HX of Motion Sickness No 08/26/24 12:52 HX of N/V After Surgery No 08/26/24 12:52 Non-Smoker Yes 08/26/24 12:52 Duration of Surgery greater Yes 08/26/24 12:52 than 60 minutes Number of Risk Factors 2 08/26/24 12:52 PONV Score Moderate Risk 08/26/24 12:52 Height & Weight Height & Weight: Anesthesia: Height & Weight Height 5 ft 8 in 09/04/24 06:10 Weight: 95 kg 09/04/24 06:10 Body Mass Index (BMI) 31.8 09/04/24 06:10 Respiratory Assessment Respiratory Assessment - customer account administrator: Respiratory Tract Infection Hx - customer account administrator Hx Respiratory Tract Infection No 08/26/24 12:52 STOP Sleep Apnea STOP Sleep Apnea - customer account administrator: STOP Sleep Apnea - customer account administrator Hx Hypertension Yes: CONTROLLED WITH MED 08/26/24 12:52 Hx Sleep Apnea No 08/26/24 12:52 CPAP BIPAP Do you snore loudly (louder Yes 08/26/24 12:52 than talking or can be heard Do you often feel tired/ Yes 08/26/24 12:52 fatigued/ sleepy during daytime? Has anyone observed you stop No 08/26/24 12:52 breathing during sleep? STOP Results Positive 08/26/24 12:52 QUESTION #5 FULL TEXT : Do you snore loudly (louder than talking or can be heard through closed doors)? 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 Specify any problems Hx of Preganancy in last 3 N/A 08/26/24 12:52 Months Nurse Filling Out Transfusion DSCHRIBER 08/26/24 12:52 & Questions: Date: 08/26/24 08/26/24 12:52 Time: 12:54 08/26/24 12:52 Patient unable to answer at this time (ie. confused, unrespo /Reproduction History /Reproductive History - customer account administrator: /Reproductive Hx- customer account administrator Hx Now No 08/26/24 12:52 Gestational Age (in weeks): EDC: Hx Hx Para Hx Section SAB No 08/26/24 12:52 Active Medications Active Medications: Current Medications Generic Name Dose Route Start Last Admin Trade Name Freq PRN Reason Stop Dose Admin Cefazolin Sodium 2 gm/ N/A 20 mls @ 400 mls/hr 09/04/24 07:30 IV 09/04/24 07:32 PREOP ONE PFSH Medical History Wears glasses Prostate disease High cholesterol Back pain Former smoker History of edema History of echocardiogram Melanoma Depression Constipation Skin cancer HTN (hypertension) Arthritis Home Medications ?Medication ?Instructions ?Recorded ?Last Taken ?Type aspirin 81 mg tablet,delayed 81 mg PO DAILY 01/29/18 08/26/24 History release (Adult Low Dose Aspirin) clotrimazole-betamethasone 1 1 applic topical BID PRN PRN 01/29/18 Unknown History %-0.05 % topical cream (Lotrisone) Rash/Topical Irritation docusate sodium 100 mg capsule 100 mg PO DAILY PRN PRN 01/29/18 Unknown History Constipation duloxetine 60 mg capsule,delayed 60 mg PO QDAY depression 01/29/18 Unknown History release ketoconazole 1 % shampoo 1 applic topical 2XW 01/29/18 Unknown History tamsulosin 0.4 mg capsule 0.8 mg PO QHS urine flow 01/29/18 Unknown History triamcinolone acetonide 0.1 % 1 applic topical DAILY PRN PRN 01/29/18 Unknown History topical cream Rash/Topical Irritation verapamil 360 mg 24 hr 360 mg PO QHS HTN 01/29/18 09/03/24 History capsule,extended release trazodone 50 mg tablet 50 mg PO QHS PRN insomnia #90 tabs 02/28/18 Unknown Rx atorvastatin 10 mg tablet 10 mg PO QHS cholesterol 08/10/18 Unknown History dutasteride 0.5 mg capsule 0.5 mg PO QHS prostate 08/10/18 Unknown History fluocinolone 0.025 % topical cream 1 applic topical BID PRN PRN 08/10/18 Unknown History (Synalar) Rash/Topical Irritation fluticasone propionate 50 2 spray intranasal DAILY PRN PRN 08/10/18 Unknown History mcg/actuation nasal Allergies spray,suspension furosemide 20 mg tablet 20 mg PO QDAY 08/13/24 Unknown History guselkumab 100 mg/mL subcutaneous 100 mg subcut .EVERY 8 WEEKS 08/13/24 Unknown History auto-injector (Tremfya) losartan 50 mg tablet 50 mg PO QDAY 08/13/24 09/03/24 History Allergy/AdvReac Type Severity Reaction Status Date / Time Latex, Natural Rubber Allergy Intermediate Unknown Verified 09/04/24 06:09 Family History Mother Hypertension Father Hypertension Other Alcoholism Anxiety Arthritis Depression Myocardial infarction Surgical History Hx of right cataract extraction Hx of left cataract extraction Hx of total knee arthroplasty Hx of total knee arthroplasty S/P colonoscopy Status post surgical removal of pilonidal cyst S/P hernia repair Social History Smoking Status: Former smoker alcohol intake: never substance use type: does not use what type of physical activity do you participate in: none Review of Systems (Anesthesia) ROS Narrative System reviewed and no additional complaints, except as documented.
--- NOTE | 2024-09-04 08:00 | LES_PTH ---
PATHOLOGY RESULTS PATIENT: SAM CALDWELL LOC: [facility] [place] U#:[id number] AGE/SX: 79/M ROOM: RE09/04/[address]: Dr. Patrick Phan MD : 1945 BED: DIS: 09/04/2024 SPEC #: [id number] RECD: 09/04/24 09:16 STATUS: YAMIL REJw #: [id number] JACKI: 09/04/24 08:[address]: Patrick Phan DEPT: SURGICAL PATHOLOGY RECD BY: Darius Calabrese ENTERED: 09/04/24 09:16 SP TYPE: Lesion OTHR DR: Dr. Dacia Parada MD Tissues: Skin of hand and finger, NOS Skin of back, NOS Procedures: Frozen Section (charge) Surgery Specimen Level IV HEADER OPERATION: Right dorsal hand squamous cell carcinoma PRE-OP DIAGNOSIS: Squamous cell carcinoma TISSUE SUBMITTED: A-Right dorsal hand squamous cell carcinoma *short stitch- radial, long stitch-proximal*, B- Left back melanoma *short stitch- superior, long stitch-lateral* FROZEN SECTION DIAGNOSIS A. Right dorsal hand lesion, excisional biopsy: Margins are free of lesion. / 09/04/2024 MICROSCOPIC DIAGNOSIS A. Right dorsal hand lesion, excisional biopsy: Squamous cell carcinoma in situ, completely excised. Actinic keratosis with mild atypia. Solar elastosis. See comment. B. Left back melanoma: Focal ulceration and associated inflammation, consistent with previous biopsy site. Actinic keratosis with focal seborrheic keratosis like features. Negative for residual melanocytic lesion. See comment. 09/09/2024 COMMENT A. The lesion is 0.5cm away from the closest peripheral margin. B. As per EMR, the patient history of superficial spreading melanoma, left back and right hand, squamous cell carcinoma. Please make reference to previous specimen [id number] mid back lesion, punch biopsy with diagnosis of extensive ulceration, acute inflammation and granulation tissue reaction and negative for residual melanocytic lesion. MICROSCOPIC DESCRIPTION Slides are reviewed. GROSS DESCRIPTION A. Received fresh for frozen section diagnosis labeled with the patient's name is a specimen designated Right dorsal hand lesion. The specimen consists of a piece of parra-white skin measuring 2.1 x 1.5 x 0.1cm. The specimen is oriented as follows: short stich-radial, long stitch-proximal. The specimen is inked as follows: proximal margin- black, distal margin-blue, radial margin-yellow, ulnar margin-green. Entire specimen is submitted in two cassettes for frozen section diagnosis. Cassette 1 contains the radial and ulnar margin. Ever 09/04/2024 B. Received in fixative is one container labeled with the patient's name and designated Left back melanoma. The specimen consists of a piece of parra-white skin with underlying tissue measuring 3.0 x 2.5cm and up to 1.2cm in thickness. The specimen is oriented as follows: short stitch- superior, long stitch-lateral. Skin surface shows central area of ulceration. The specimen is inked as follows: superior margin-blue, inferior margin- green, lateral margin-yellow, medial margin-black, deep margin-red. The specimen is serially sectioned and submitted entirely in six cassettes. Cassette 1 contains the superior and inferior margins. Sections will be submitted after additional fixation. Ever 09/05/2024 TC:0 CPT:64679f6, 50136, [id number]
[2024-09-04] MEDS: Cefazolin 2 GM in Syringe IV (08:27)
[2024-09-04] MEDS: Lidocaine 1% /Epi 1:100 (20ml) 20 ML Vial (08:45)
[2024-09-04] MEDS: Bupiv/Epi 0.25% 30 ML Vial (08:45)
--- NOTE | 2024-09-04 10:39 | PCM.POST.ANE ---
Anesthesia: Postop Eval I Current Vital Signs Temperature: 97 F Pulse Rate: 79 Blood Pressure: 147/89 Respiratory Rate: 18 Pulse Ox: 93 Assessment Airway patent: Yes Spontaneous unlabored respirations: Yes nausea: No Vomiting: No Anesthesia Complication: No Fluid Hydration Crystalloid volume administer (ml): 30 Total IV fluid infused: 30 Progress Note Anesthesia document: Postop Eval 1 completed: Yes
--- NOTE | 2024-09-04 15:28 | OP.PCM_ITS ---
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 Right dorsal hand squamous cell lesion. Description of surgery: Indications: Miguel Angel Guillen is a delightful 79-year-old male who presented to my office for a right hand lesion that was determined to be at least squamous cell carcinoma in situ based on a shave biopsy from a local dermatology office. The margins at the base of the shave were positive, and therefore after discussion with the pathologist, it was likely that there was an invasive component. I talked the patient extensively about risks and benefits of removal of the area which was still a persistent scaly lesion on the back of his hand, and he elected for excision with 0.5 cm margins. Patient had significant skin laxity in the back of his hand and primary closure was determined to be adequate and patient was accepting of this plan. I was also consulted for a left back superficial spreading melanoma that was diagnosed with a shave biopsy and determined to have a Breslow depth of 0.4 mm based on the shave. I biopsied a full-thickness and there was no residual melanoma, therefore we are basing the depth off of the shave biopsy. I also examined the report of his decision DX molecular testing of the melanoma and he had a 2% risk of a positive sentinel node. I therefore counseled the patient that it was reasonable to forego the sentinel node in this case and just excise the lesion with 1 cm margins. He was happy with this plan and we decided to proceed. I marked both of the lesions in preoperative holding with the patient and he was in agreement with the site markings, as well as his son. Procedure details Patient was correct identified in preoperative holding and taken back to the operating room where he was administered sedation and the above-noted local block. He was prepped and draped in sterile fashion and all proper timeouts we re performed. I began the procedure by excising the right hand squamous cell lesion with a 15 blade scalpel circumferentially (full-thickness excision) with 0.5 cm margins for total excision of a 2 x 2 cm lesion with margins. It was sent to pathology and the frozen section was negative for carcinoma at the margins of the specimen. I therefore excised proximal and distal triangles (dogears) for a linear closure which was easily accomplished as he has significant skin laxity on the dorsum of his right hand. The wound was irrigated with copious amounts of normal saline and hemostasis obtained with Bovie electrocautery. The intermediate closure was performed with 3-0 Monocryl deep dermal sutures followed by running subcuticular 3-0 Monocryl suture and Prineo tape. This was a total intermediate closure of 6 cm. Attention was then turned to the melanoma and different instruments and different surgical gown/gloves were used. A 15 blade scalpel was used to take a 1 cm margin circumferentially around the melanoma (full-thickness excision down to fascia) and the specimen was sent for permanent section. Horizontal dogears were then excised and minimal undermining was performed with Bovie electrocautery and the wound came together nicely after hemostasis was obtained with Bovie electrocautery and the wound was irrigated. 3-0 PDS was used for the deep Shira/deep dermal sutures followed by 3-0 Monocryl deep dermal suture and running subcuticular 3-0 Monocryl suture and Prineo tape. This was a total intermediate closure 6 cm. The patient tolerated the procedure well and was awakened and taken to the PACU in stable condition. Surgical Findings: Negative margins from the frozen sections from the right hand Counselor Supervisor grinder watch parts: No Complications Complications: No Admit VTE Documentation VTE Mechan Device Prophylaxis: SCD's
== END 2024-09-04 11:56 | disposition home or self-care (01) ==
LOC: SDC 05:48 → AC 05:50
PROVIDERS: PCP Student in an Organized Health Care Education/Training Program; Referring Provider Surgery Plastic and Reconstructive Surgery; Visit Provider Surgery Plastic and Reconstructive Surgery
PROC: (CPT 11603; principal; 2024-09-04 07:20)
DX: C76.41 Malignant neoplasm of right upper limb (principal); C43.59 Malignant melanoma of other part of trunk; I10 Essential (primary) hypertension; E78.00 Pure hypercholesterolemia, unspecified; L57.8 Other skin changes due to chronic exposure to nonionizing radiation; F32.A Depression, unspecified; Z79.899 Other long term (current) drug therapy; Z79.82 Long term (current) use of aspirin; Z87.891 Personal history of nicotine dependence
CPT/HCPCS: 11603; 12042; 11622; 12032; 00400; 88305; 88331; A4216; J2405

== ENCOUNTER → 2025-04-30 | Outpatient (CLI) | payer MEDICARE, SELFPAY ==
[2025-05-02 05:08] LABS: QNTFERON TB Mitogen Value > 10.00 IU/mL (.); QNTFERON TB Nil Value 0.02 IU/mL (.); QNTFERON TB1+ Ag Value 0.04 IU/mL (.); QNTFERON TB2+ Ag Value 0.04 IU/mL (.); QNTIFERON TB Positive Criteria Negative (Negative)
== END | disposition home or self-care (01) ==
LOC: MTLAB 12:35
PROVIDERS: PCP Student in an Organized Health Care Education/Training Program; Referring Provider Dermatology; Visit Provider Dermatology
DX: L40.0 Psoriasis vulgaris (principal)
CPT/HCPCS: 36415; 86480